=== PATIENT | male | born 1950 | race Caucasian/White ===

== ENCOUNTER → 2018-11-23 09:59 | Outpatient (CLI) | payer MEDICARE, SELFPAY ==
[2018-11-23 12:06] LABS: PSA,Total - Annual Screen 1.15 ng/mL (0.00-4.00)
== END ==
PROVIDERS: Family Provider Family Medicine; PCP Family Medicine; Visit Provider Family Medicine
DX: Z12.5 Encounter for screening for malignant neoplasm of prostate (principal)
CPT/HCPCS: 36415; 84153; G0103

== ENCOUNTER → 2019-12-25 11:41 | Outpatient (CLI) | payer MEDICARE, SELFPAY ==
[2019-12-25 15:55] LABS: Vitamin D,25 Hydroxy 47.2 ng/mL
[2019-12-25 15:56] LABS: ALB/GLOB Ratio 0.9 RATIO (0.9-2.4); AST(SGOT) 45 U/L (15-37); Alanine Aminotransfer ALT/SGPT 103 U/L (16-61); Albumin, Serum 3.7 g/dL (3.2-5.0); Alkaline Phosphatase 84 U/L (45-117); Anion Gap 5 (5-15); BUN 16 mg/dL (7-18); BUN/Creat Ratio 19.8 RATIO (10-20); Calcium,Total 8.9 mg/dL (8.5-10.1); Chloride 104 mmol/L (98-107); Cholesterol 274 mg/dL (200); Creatinine, Serum 0.81 mg/dL (0.70-1.30); EST Glomerular Filtration Rate 101 mL/min (>60); Est Glom Filt Rate - Afr Amer 122 mL/min (>60); Globulin 4.2 g/dL (2.2-4.2); Glucose 82 mg/dL (74-106); High Density Lipoprotein 52 mg/dL; Potassium 3.9 mmol/L (3.5-5.1); Protein, Total 7.9 g/dL (6.4-8.2); Sodium Level 137 mmol/L (136-145); Triglycerides 79 mg/dL; Very Low Density Lipoprotein 16 mg/dL (5-40)
== END ==
PROVIDERS: PCP Family Medicine; Referring Provider Family Medicine; Visit Provider Family Medicine
DX: E55.9 Vitamin D deficiency, unspecified (principal); E78.5 Hyperlipidemia, unspecified
CPT/HCPCS: 36415; 80053; 80061; 82306

== ENCOUNTER → 2021-01-20 14:57 | Outpatient (CLI) | payer MEDICARE, SELFPAY ==
[2021-01-20 18:07] LABS: Vitamin D,25 Hydroxy 37.2 ng/mL
[2021-01-20 18:25] LABS: Cholesterol 232 mg/dL (200); High Density Lipoprotein 60 mg/dL; PSA,Total - Annual Screen 1.33 ng/mL (0.00-4.00); Triglycerides 103 mg/dL; Very Low Density Lipoprotein 21 mg/dL (5-40)
== END ==
PROVIDERS: PCP Family Medicine; Referring Provider Family Medicine; Visit Provider Family Medicine
DX: Z00.00 Encounter for general adult medical examination without abnormal findings (principal); E78.5 Hyperlipidemia, unspecified; E55.9 Vitamin D deficiency, unspecified; Z12.5 Encounter for screening for malignant neoplasm of prostate
CPT/HCPCS: 36415; 80061; 82306; 84153; G0103

== ENCOUNTER → 2022-04-27 | Outpatient (CLI) | payer MEDICARE, SELFPAY ==
[2022-04-27 12:22] LABS: AST(SGOT) 33 U/L (15-37); Alanine Aminotransfer ALT/SGPT 75 U/L (16-61); Albumin, Serum 3.6 g/dL (3.2-5.0); Alkaline Phosphatase 74 U/L (45-117); Bilirubin, Direct 0.12 mg/dL (0.00-0.30); Cholesterol 258 mg/dL (200); Globulin 3.9 g/dL (2.2-4.2); High Density Lipoprotein 57 mg/dL; PSA,Total - Annual Screen 1.56 ng/mL (0.00-4.00); Protein, Total 7.5 g/dL (6.4-8.2); Triglycerides 91 mg/dL; Very Low Density Lipoprotein 18 mg/dL (5-40)
== END | disposition home or self-care (01) ==
LOC: MFPLAB 10:45
PROVIDERS: PCP Family Medicine; Referring Provider Family Medicine; Visit Provider Family Medicine
DX: Z00.00 Encounter for general adult medical examination without abnormal findings (principal); R74.8 Abnormal levels of other serum enzymes; Z12.5 Encounter for screening for malignant neoplasm of prostate
CPT/HCPCS: 36415; 80061; 80076; 84153; G0103

== ENCOUNTER 2022-08-25 08:24 | Day surgery (SDC) | payer MEDICARE, SELFPAY ==
[2022-08-25] VITALS (7 sets, daily range): BP systolic 135–160; BP diastolic 80–95; PULSE 66–73; RESP 15–16; TEMP 36.5–37.5; O2SAT 93–97; BMI 21.9
[2022-08-25] MEDS: Lactated Ringers 1,000 ML 15 ML IV ×2 (09:26→11:15)
--- NOTE | 2022-08-25 09:31 | PCM.HP.BLA ---
History and Physical Date of Admission: 08/25/22 Intake Vital Signs ? 08/02/2213:03 Height 6 ft 4 in Weight: 186 lb BMI 22.6 BP 158/88 H Blood Pressure Location Rt popliteal Position Sitting Respiration 17 Pulse 67 Pulse Source Monitor Temp 97.7 F L Temp Source Temporal Pulse Oximetry (%) 97 Oxygen Delivery Method room air Intake Visit Reasons:?Hernia Chief Complaint: hernia Is patient in pain?: No Allergies No Known Allergies Allergy (Unverified 08/02/22 13:05) Medications garlic extract 400 mg tablet 400 mg PO DAILY 08/02/22 [History Confirmed 08/02/22] multivitamin with minerals 1 cap PO DAILY 08/02/22 [History Confirmed 08/02/22] PFSH Family History?(Updated 08/02/22 @ 13:02 by Peg Mena) Mother Hypertension Heart diseaseFather Heart disease CVA (cerebral vascular accident)Brother Diabetes Heart disease Hypertension Social History?(Updated 08/02/22 @ 13:03 by Peg Mena) Smoking Status:? Never smoker alcohol intake:? never substance use type:? does not use HPI HPI HPI: Patient is a 72-year-old male with bulging of the right groin.? Patient reports is been going on for few months.? Causes discomfort without severe pain.? No nausea or vomiting. ROS General General: No weight change, appetite, fatigue, colon cancer, breast cancer or weakness HEENT HEENT: Yes eye surgery; No difficulty swallowing, eye injury, swollen glands or hoarseness Endo Endocrine: No thyroid disease, diabetes mellitus, thyroid cancer, Hair loss, heat intolerance or cold intolerance Skin Skin: No rash or changing moles Breast Breast: No left breast lump, right breast lump, nipple discharge, breast pain, abnormal mammogram, abnormal US or breast enlargement Musc Musculoskeletal: No back problems, arthritis, rheumatoid arthritis, gout or joint pain Cardio Cardiovascular: No murmur, pacemaker, heart disease, atrial fibrillation, high blood pressure, heart attack, heart stent, palpitations, shortness of breat with exertion or chest pain Psych Psychiatric: No depression, anxiety or hearing voices Resp Respiratory: No shortness of breath, No sleep apnea, No cough, No COPD, No asthma, No emphysema and No wheezing Gastro Gastrointestinal: No abdominal pain, No nausea or vomiting, No diarrhea, No constipation, No blood in stool, No acid reflux, No hemorrhoids, No ulcers, No gallbladder problem and No black,tarry stools Farzad Hematologic: No blood thinners, No blood disorders, No bleeding, No anemia and No blood clots Neuro Neurologic: No system reviewed and no additional complaints, except as documented, No as per HPI, No abnormal gait, No abnormal hearing, No abnormal movements, No abnormal speech, No behavioral changes, No burning sensations, No confusion, No convulsions, No disequilibrium, No dizziness, No localized weakness, No frequent falls, No headache(s), No lack of coordination, No loss of vision, No memory loss, No numbness, No other visual disturbances, No radicular pain, No restless legs, No sensory deficit, No syncope, No tingling, No tremor(s), No weakness and No other Exam Const General: cooperative Orientation: alert and oriented x3 HENMT Head: normal to inspection Neck Neck: normal visual inspection and full ROM Chest Chest palpation & inspection: normal inspection of the chest Resp Effort & Inspection: normal respiratory effort Auscultation: clear to auscultation bilaterally Cardio Rate: regular rate Rhythm: regular rhythm GI Inspection: non-distended Palpation: soft, hernia direct inguinal bilaterally and nontender Skin General: no rashes or lesions noted Neuro General: patient alert and patient oriented x3 Extrem General: full ROM Psych Appearance: grossly normal Mental Status: mental status grossly normal Assessment and Plan Assessment and Plan (1) Right inguinal hernia: ?Status:?Acute ?Plan: Patient on physical exam has bilateral inguinal hernias.? I discussed robotic assisted laparoscopic bilateral inguinal hernia repair with mesh.? I discussed the procedure in detail as well as postoperative care and the risks including not limited to bleeding, infection, injury to spermatic cord or bowel or bladder or ureter.? Patient understands the risks and is willing to proceed. Dominick Oakes MD Pager: [facility] [address] [place] [address], [address] [place] [address] Office: I have examined the patient and the H&P has been reviewed. There are no clinical changes since date of exam.
[2022-08-25] MEDS: Cefazolin 2 GM in 0.9% Normal Saline 100 ML IV (10:12)
[2022-08-25] MEDS: Bupivacaine 0.25% 30 ML Vial (11:20)
[2022-08-25] MEDS: Sugammadex Sodium 200 MG/2 ML VIAL IV (11:21)
--- NOTE | 2022-08-25 11:32 | OP.PCM_ITS ---
Report of Operation Date of Procedure: 08/25/22 Pre-Operative Diagnosis: Bilateral inguinal hernia Post-Operative Diagnosis: Right inguinal hernia Surgery/Procedure Performed:: Robotic assisted laparoscopic right inguinal hernia repair with mesh Specimen's removed: None Description of Procedure: Patient was brought back to the operating room and general anesthesia was induced. The abdomen was prepped and draped in usual sterile fashion. A midline incision was made superior to the umbilicus and the fascia was grasped and elevated and a Veress needle was placed into the abdomen and a drop test was performed. Next the abdomen was insufflated 15 mmHg and the Veress needle was removed. The camera port was placed and the camera placed in the abdomen there were no injuries from entry. The patient was placed in a steep Trendelenburg position and the inguinal regions were inspected. The patient appeared to have an indirect right inguinal hernia but there was no indirect or direct hernia on the left. Next under direct visualization a port was placed in the right abdomen and left abdomen and then the robot was docked. The peritoneum was incised in the right groin and dissection was carried inferiorly assistive electrocautery until the hernia was encountered. The hernia sac was reduced and dissection was carried posteriorly. Next a 10 x 15 cm ProGrip mesh was placed into the right groin and unfolded over the hernia defect. Next the peritoneum was reapproximated using a running 3 OV lock suture. At the end of the procedure the procedure the peritoneum completely cover the mesh. Next the port s were removed and the abdomen was allowed to desufflate. The skin incisions were injected with local anesthetic and closed with interrupted 4-0 Monocryl suture. Steri-Strips and bandages were applied. Scrotum was checked again procedure and contain both testicles. Patient was taken to PACU in stable condition. Grafts/Implants Used: ProGrip mesh in the right groin Admit VTE Documentation VTE Mechan Device Prophylaxis: SCD's
--- NOTE | 2022-08-25 11:35 | DCINST_ITS ---
Discharge Instructions Procedure Hernia Diet Discharge Diet: Light diet - advance as tolerated Activity Discharge Activity: May Not Drive (for 2-3 days or while taking narcotic pain meds.) and May Shower (with the bandage in place 1-2 days after surgery.) Lifting Restrictions: 20 pounds for 4 weeks. Additional Activity Instructions:: Climbing stairs is fine, walking is encouraged. Sitting in bed may be uncomfortable. Sitting up using your lateral muscles (sitting up sideways) is usually more comfortable. Do not drive, work heavy equipment of sign legal documents for 24 hours. If your hernia repair was an inguinal repair, you may have scrotal swelling, an ice pack and/or athletic support can provide more comfort. Pain medications may cause nausea, you should typically eat light foods as you take your pain medications. Pain medications may also cause constipation. If you have difficulty with this, discuss with your doctor. Dressing / Incision Call your doctor if your incision/area has: Continuous Slow Oozing, Sudden Increased Bleeding, Increased Pain/ Swelling, Increased Redness and Foul Smelling Discharge Call your doctor if you observe: Fever of 101 or Higher Suture Line Care: Avoid Pulling/Pushing and Avoid Pinching/Bending Remove Dressing in: 2 days (Remove clear bandages in 2 days, remove Steri-Strips in 7 to 10 days.) Cleanse incision/area with: Soap & Water Additional Dressing/Incision Instructions:: Ibuprofen and Tylenol for pain, oxycodone for breakthrough pain. Follow Up Care Please Follow Up With: Dominikc Oakes MD When: Please call to schedule 2 week follow up appointment. [phone] Test Results: Test results from this visit will be discussed in further detail at your follow- up appointment, if applicable. Discharge Plan Admission Attending Provider: Dominick Oakes Primary Care Provider: Maria Del Rosario Sierra Discharge Orders/Prescriptions Prescriptions: New oxycodone 5 mg tablet 5 - 10 mg PO Q6H PRN (Reason: pain) 5 Days Qty: 10 0RF No Action garlic extract 400 mg tablet 400 mg PO DAILY multivitamin with minerals Capsule 1 cap PO DAILY ascorbic acid (vitamin C) [Vitamin C] 500 mg Tablet 500 mg PO DAILY Gabamax 1 tsp PO/SL DAILY Serelax 1 tab PO/SL BID Referrals / Follow Up: Maria Del Rosario Sierra MD [Primary Care Provider] - Disposition Disposition (needs filled in before D/C Order can be placed): Home, Self Care
== END 2022-08-25 14:38 | disposition home or self-care (01) ==
LOC: SDC 08:33 → AC 08:34
PROVIDERS: PCP Family Medicine; Referring Provider Surgery; Visit Provider Surgery
PROC: (CPT 49650; principal; 2022-08-25 09:40)
DX: K40.90 Unilateral inguinal hernia, without obstruction or gangrene, not specified as recurrent (principal)
CPT/HCPCS: 49650; S2900; 00840; 93005; J7120; J2405

== ENCOUNTER → 2023-05-02 | Outpatient (CLI) | payer MEDICARE, SELFPAY ==
[2023-05-02 10:46] LABS: AST(SGOT) 28 U/L (15-37); Alanine Aminotransfer ALT/SGPT 72 U/L (16-61); Albumin, Serum 3.3 g/dL (3.2-5.0); Alkaline Phosphatase 97 U/L (45-117); Bilirubin, Direct 0.17 mg/dL (0.00-0.30); Globulin 3.9 g/dL (2.2-4.2); PSA,Total - Annual Screen 2.59 ng/mL (0.00-4.00); Protein, Total 7.2 g/dL (6.4-8.2)
== END | disposition home or self-care (01) ==
PROVIDERS: PCP Family Medicine; Visit Provider Family Medicine
DX: R74.8 Abnormal levels of other serum enzymes (principal); Z12.5 Encounter for screening for malignant neoplasm of prostate
CPT/HCPCS: 36415; 80076; 84153; G0103

== ENCOUNTER → 2023-07-24 | Outpatient (CLI) | payer MEDICARE, SELFPAY ==
[2023-07-24 12:24] LABS: Absolute Lymphocyte Count 1.76 X10^3/uL (0.83-4.51); Basophil# 0.01 X10^3/uL; Basophil% 0.2 % (0-1); Eosinophils% 1.8 % (0-5); Hemoglobin 16.1 g/dL (13.0-16.5); Lymphocyte # 1.76 X10^3/ul (0.83-4.51); Lymphocyte % 31.9 % (19-41); Mean Corp Hgb Conc 32.9 g/dL (32-36); Mean Corpuscular Volume 94.4 fL (80-94); Mean Platelet Vol. 9.5 fl (6.2-12.0); Monocyte# 0.62 X10^3/uL; Monocyte% 11.2 % (0-10); NRBC Flagged by Analyzer 0 % (0-5); Neutrophil # 3.02 X10^3/uL (2.7-7.7); Neutrophil % 54.7 % (47-70); Platelet Count 247 K/mm3 (150-450); RBC Distribution Width CV 12.9 % (11.6-14.6); RBC Distribution Width SD 44.8 fl (35.1-43.9); Red Blood Count 5.19 M/mm3 (4.6-6.2); White Blood Count 5.5 K/mm3 (4.4-11.0)
[2023-07-24 12:55] LABS: Thyroid Stim Hormone (TSH) 2.17 uIU/mL (0.358-3.74)
== END | disposition home or self-care (01) ==
LOC: MTLAB 09:59
PROVIDERS: PCP Family Medicine; Referring Provider Family Medicine; Visit Provider Family Medicine
DX: R53.83 Other fatigue (principal)
CPT/HCPCS: 36415; 84443; 85025

== ENCOUNTER 2024-04-08 15:22 | Inpatient (IN) | payer MEDICARE, SELFPAY ==
[2024-04-08 15:23] VITALS: BP 167/98; PULSE 74; RESP 16; TEMP 36.8; O2SAT 97; BMI 22.8
--- NOTE | 2024-04-08 15:48 | EKG12_ITS ---
Test Reason : CP Blood Pressure : / mmHG Vent. Rate : 074 BPM Atrial Rate : 074 BPM P-R Int : 162 ms QRS Dur : 086 ms QT Int : 408 ms P-R-T Axes : 066 -09 072 degrees QTc Int : 452 ms Poor data quality, interpretation may be adversely affected Normal sinus rhythm Possible Inferior infarct , age undetermined Anterior infarct , age undetermined Abnormal ECG Confirmed by Wiliam Joseph ([id number]), online content editor MAGALI ANN ([id number]) on 04/09/2024 8:34:29 AM Referred By: CARL Confirmed By:Wiliam Joseph
--- NOTE | 2024-04-08 15:49 | ED.VIS.CHEST ---
HPI History of Present Illness Chief Complaint: Chest Pain Detail of Chief Complaint: Chest pain Informant: patient Narrative Narrative: Patient presents emergency department complaint of chest discomfort that started today around noon. He was doing some light work when he noticed the discomfort in his chest and some discomfort in his left arm. Denies any shortness of breath or diaphoresis. He has not had pain like this before. Describes it as achy. Does have significant family history of heart disease and that his brother had a 5 vessel CABG at age 50 and his father had a CABG in his 60s. Another brother is also had coronary artery intervention. No history of PE or DVT. Last stress test was about 20 years ago. Patient currently rates his pain about a 1 or 2 out of 10. [facility] Medical History (Updated 04/08/24 @ 17:[address] Francisco Araiza, ) Loss of hearing Wears glasses Essential tremor Non-smoker History of stress test Home Medications ?Medication ?Instructions ?Recorded ?Last Taken ?Type garlic extract 400 mg tablet 400 mg PO DAILY 08/02/22 Unknown History multivitamin with minerals 1 cap PO DAILY 08/02/22 Unknown History Gabamax 1 tsp PO/SL DAILY TREMORS 08/18/22 Unknown History Serelax 1 tab PO/SL BID MOOD 08/18/22 Unknown History ascorbic acid (vitamin C) 500 mg 500 mg PO DAILY 08/18/22 Unknown History tablet (Vitamin C) Allergy/AdvReac Type Severity Reaction Status Date / Time No Known Allergies Allergy Verified 04/08/24 15:23 Family History (Updated 08/02/22 @ 13:02 by Peg Mena) Mother Hypertension Heart disease Father Heart disease CVA (cerebral vascular accident) Brother Diabetes Heart disease Hypertension Surgical History History of right inguinal hernia repair (~08/2022) Hx of colonoscopy Hx of eye surgery Hx of arthroscopic knee surgery Social History (Updated 08/02/22 @ 13:03 by Peg Mena) Smoking Status: Never smoker alcohol intake: never substance use type: does not use ROS ROS ED Review of Systems ROS Unobtainable: other Constitutional Constitutional ED: Reports lethargy; Denies chills, fever(s), sweats or weight loss Eyes Eyes: Denies blurry vision, change in vision or diplopia ENT ENT ED: Denies rhinorrhea or sore throat Cardiovascular Cardiovascular: Reports chest pain; Denies orthopnea or racing heartbeat Respiratory/Chest Respiratory/Chest: Denies cough, dyspnea, dyspnea on exertion, orthopnea or sputum Gastrointestinal Gastrointestinal: Denies abdominal pain, diarrhea, nausea or vomiting Genitourinary Genitourinary ED: Denies dysuria, hematuria or urinary frequency Musculoskeletal Musculoskeletal: Denies arthralgias, back pain, myalgias or neck pain Integumentary Denies abscess, Abrasions or rash Neurologic Neurologic: Denies headache(s) or weakness Psychiatric Psychiatric: Denies anxiety, depression or suicidal thoughts Endocrine Endocrinology: Denies polydipsia, polyphagia or polyuria Hematologic/Lymphatic Hematologic/Lymphatic: Denies easy bleeding, easy bruising or lymphadenopathy Allergic/Immunologic Allergic/Immunologic ED: Denies mouth swelling, tongue swelling or urticaria EXAM Physical Exam Const Vital Signs: 04/08/24 15:23 04/08/24 16:23 04/08/24 16:24 Temperature 98.2 F Temperature Source Temporal Pulse Rate 74 68 Respiratory Rate 16 20 H Respiratory Effort Blood Pressure 167/98 H 161/98 H Blood Pressure Mean 121 119 Pulse Ox 97 98 Oxygen Delivery Method Room Air Room Air Room Air 04/08/24 16:25 Temperature Temperature Source Pulse Rate Respiratory Rate Respiratory Effort Normal Non-Labored Blood Pressure Blood Pressure Mean Pulse Ox Oxygen Delivery Method Positive well nourished and well developed General Appearance ED: well developed and NAD HEENT Reports TM's clear and moist mucous membranes normocephalic and atraumatic; Negative for trauma or tenderness Tympanic Membrane ED: Yes TM's clear Eyes PERRL and EOMs intact bilaterally General Eye ED: Negative for pale conjunctiva or scleral icterus Neck no lymphadenopathy, supple and no JVD General: Negative for tenderness Chest Wall inspection of chest normal and palpation of chest normal Chest: Negative for tenderness Resp normal respiratory effort and clear to auscultation bilaterally Effort and Inspection: Negative for respiratory distress or pain with movement Auscultation: Negative for rhonchi, wheezes or diminished lung sounds Cardio regular rate, regular rhythm, S1 normal heart sound, S2 normal heart sound and no murmurs Peripheral Pulses: pulses 2+ throughout GI normal to inspection, nondistended, normoactive bowel sounds, soft to palpation, non-tender, non-distended and no masses Back/Spine no CVA tenderness and no thoracic nor lumbar tenderness Extremity normal to inspection General Extremety ED: Negative for edema General Extremity: Negative for edema Neuro oriented x3, CN's II-XII intact bilaterally, no sensory deficits noted and gait normal Sensorium / Orientation: awake, alert, oriented to person, oriented to place and oriented to time Motor Exam: strength 5/5 throughout and strength abnormal Psych mental status grossly normal Skin no rashes or lesions noted and no wounds Heart Score History: Moderately Suspicious ECG: Nonspecific Repolarization Age: >/= 65 years Risk Factors: 1 or 2 Risk Factors Troponin: >/=3 x Normal Limit Score: 7 MDM MDM MDM Narrative Medical decision making narrative: Patient presents with chest discomfort started around noon today. Significant family history heart disease. In the differential would be acute coronary syndrome versus PE. Versus musculoskeletal etiology. Versus GI etiology. EKG obtained arrival showed a sinus rhythm with Q waves in V2 and V3 with [address] elevation and when compared with prior EKG these changes appear new. No other significant changes noted. Patient CBC with differential showed a white count of 6.8 with hemoglobin 14 and platelet count of 205. Chemistries unremarkable. D-dimer when corrected for age is normal. His troponin came back elevated at 721. I did discuss case with archaeologist on-call Dr. Cisco Quintanilla and faxed him the EKGs. He recommended heparin and admission for heart cath tomorrow. Clinically patient doing well. Lab Data Attestation: I reviewed the patient's lab results. Labs: Laboratory Results - last 24 hr 04/08/24 16:00 WBC 6.8 RBC 4.80 Hgb 14.0 Hct 42.8 MCV 89.2 MCH 29.2 MCHC 32.7 RDW Std Deviation 45.6 H RDW Coeff of Sushma 14.1 Plt Count 205 MPV 9.1 Immature Gran % (Auto) 0.300 Neut % (Auto) 80.1 H Lymph % (Auto) 9.7 L Tift % (Auto) 8.6 Eos % (Auto) 1.0 Baso % (Auto) 0.3 Absolute Neuts (auto) 5.5 Absolute Lymphs (auto) 0.66 L Nucleated RBC % 0 D-Dimer Quant (PE/DVT) 0.58 H* Sodium 136 Potassium 3.7 Chloride 105 Carbon Dioxide 28.0 Anion Gap 3 L BUN 21 H Creatinine 0.86 Estim Creat Clear Calc 94.62 Est GFR (MDRD) Af Amer 112 Est GFR (MDRD) Non-Af 93 BUN/Creatinine Ratio 24.3 H Glucose 125 H Calcium 8.9 Troponin I High Sens 721 H* Radiography Diagnostic Testing: Clinical Impression(s) from Imaging Studies Chest X-Ray 04/08/24 16:15 IMPRESSION: No radiographic evidence of acute cardiopulmonary disease. Electronically Signed: Rene Sher MD at 16:34 EDT , EKG Initial EKG: Attestation: I personally reviewed and interpreted this EKG as follows: Comments: Sinus rhythm with ventricular rate of 74 bpm with old anterior septal infarct. Subtle ST elevation in V2 and V3 Prior EKG tracings: available for review Prior: Changed Discharge Plan Triage Chief Complaint: Chest Pain ED Provider: Francisco Araiza Dx/Rx/DC Orders Clinical Impression: Chest pain, Non-ST elevated myocardial infarction Prescriptions: No Action garlic extract 400 mg tablet 400 mg PO DAILY multivitamin with minerals Capsule 1 cap PO DAILY ascorbic acid (vitamin C) [Vitamin C] 500 mg Tablet 500 mg PO DAILY Gabamax 1 tsp PO/SL DAILY Serelax 1 tab PO/SL BID Primary Care Provider: Maria Del Rosario Sierra Referrals: Maria Del Rosario Sierra MD [Primary Care Provider] - Print Language: Guinean Disposition Disposition: Acute Care Hospital [facility]
[2024-04-08 16:09] LABS: Absolute Lymphocyte Count 0.66 X10^3/uL (0.83-4.51); Absolute Neutrophil Count 5.5 X10^3/uL (2.0-7.7); Basophil# 0.02 X10^3/uL; Basophil% 0.3 % (0-1); Eosinophil# 0.07 X10^3/uL; Hematocrit 42.8 % (40-54); Lymphocyte # 0.66 X10^3/ul (0.83-4.51); Lymphocyte % 9.7 % (19-41); Mean Corp Hgb Conc 32.7 g/dL (32-36); Mean Corpuscular Hgb 29.2 pg (27.0-32.0); Mean Corpuscular Volume 89.2 fL (80-94); Mean Platelet Vol. 9.1 fl (6.2-12.0); Monocyte# 0.59 X10^3/uL; Monocyte% 8.6 % (0-10); NRBC Flagged by Analyzer 0 % (0-5); Neutrophil # 5.47 X10^3/uL (2.7-7.7); Neutrophil % 80.1 % (47-70); Platelet Count 205 K/mm3 (150-450); RBC Distribution Width CV 14.1 % (11.6-14.6); RBC Distribution Width SD 45.6 fl (35.1-43.9); White Blood Count 6.8 K/mm3 (4.4-11.0)
--- NOTE | 2024-04-08 16:15 | RAD_ITS ---
EXAM: XR CHEST, 1 VIEW CLINICAL INDICATION: chest pain TECHNIQUE: Frontal view of the chest. COMPARISON: No relevant prior studies available. FINDINGS: LUNGS AND PLEURAL SPACES: Unremarkable. No consolidation or edema. No pneumothorax. No effusion. HEART: Unremarkable. Cardiac silhouette not enlarged. MEDIASTINUM: Central airways and mediastinal contour are unremarkable. BONES/JOINTS: Unremarkable. No acute fracture. SOFT TISSUES: Unremarkable. RAD/Chest 1 View (Portable) IMPRESSION: No radiographic evidence of acute cardiopulmonary disease. Electronically Signed: Rene Sher MD at 16:34 EDT ,
[2024-04-08 16:23] VITALS: BP 161/98; PULSE 68; RESP 20; O2SAT 98
[2024-04-08 16:36] LABS: Anion Gap 3 (5-15); BUN 21 mg/dL (7-18); BUN/Creat Ratio 24.3 RATIO (10-20); Calcium,Total 8.9 mg/dL (8.5-10.1); Chloride 105 mmol/L (98-107); Creatinine, Serum 0.86 mg/dL (0.70-1.30); EST Glomerular Filtration Rate 93 mL/min (>60); Est Glom Filt Rate - Afr Amer 112 mL/min (>60); Estimated Creatinine Clearance 94.62 ml/min; Glucose 125 mg/dL (74-106); Potassium 3.7 mmol/L (3.5-5.1); Sodium Level 136 mmol/L (136-145); Troponin-I HS (w/2H Reflex) 721 pg/mL (3.0-78.0)
[2024-04-08 16:38] LABS: D-Dimer Quantitative (DVT/PE) 0.58 FEU/ug/m (0.27-0.49)
--- NOTE | 2024-04-08 16:38 | ED.RN ---
Critical d-dimer of 0.[address] Araiza made aware
[2024-04-08] MEDS: Aspirin 81 MG TAB.CHEW 324 MG PO (16:40)
[2024-04-08] MEDS: 0.9% Normal Saline (1000mL) 1,000 ML 150 ML IV ×2 (16:40→23:33)
[2024-04-08 17:00] VITALS: BP 157/93; PULSE 78; RESP 16; O2SAT 98
[2024-04-08 17:07] VITALS: BP 157/93; PULSE 71
[2024-04-08] MEDS: Nitroglycerin Oint 1 INCH PACKET TD (17:07)
[2024-04-08] MEDS: HEPARIN/D5w 25,000 UNITS 25,000 UNITS/250 ML IV.SOLN. 12 UNITS CONT INF (17:07)
[2024-04-08] MEDS: Heparin Injection (Vial) 5,000 UNIT/ML VIAL 6000 UNIT IV (17:08)
[2024-04-08 17:39] LABS: International Normalized Ratio 1.1; Partial Thromboplast Time 26.3 Seconds (24.1-36.2); Prothrombin Time (Protime)PT. 13.8 SECONDS (11.7-14.9)
--- NOTE | 2024-04-08 17:39 | PCM.HP.STD ---
HPI - General General Date of Admission: 04/08/24 Date of Service: 04/08/24 Chief Complaint: Chest pain HPI Narrative MARCELLO MANNING, is a 73 M who presented to [facility] ED 04/08/2024 with substernal chest pain. In the ED he was found to have some ST changes and a troponin of over 700 so he was started on heparin drip and cardiology was contacted with plans to cath in the morning. Hospitalist contacted for admission. Patient evaluated at bedside with family member present. He reports he been in his usual health but around noon he began to have substernal chest pain, there is some question of left shoulder and arm pain though he had been staining something and is left-handed so he was not sure if that was from overuse or not. Had a headache yesterday but otherwise has no other acute complaints, chest pain almost completely abated after 3 hours and is now minimal. [facility] Medical History (Updated 04/08/24 @ 17:[address] Francisco Araiza, DO) Essential tremor History of stress test Loss of hearing Non-smoker Wears glasses Home Medications ?Medication ?Instructions ?Recorded ?Last Taken ?Type Gabamax 1 tsp PO DAILY TREMORS 08/18/22 04/07/24 History BALANCE OF NATURE 1 cap PO DAILY SUPPLEMENT 04/08/24 04/08/24 History PREVAGEN 1 cap PO DAILY MEMORY 04/08/24 04/08/24 History Allergy/AdvReac Type Severity Reaction Status Date / Time No Known Allergies Allergy Verified 04/08/24 15:23 Family History (Updated 08/02/22 @ 13:02 by Peg Mena) Mother Hypertension Heart disease Father Heart disease CVA (cerebral vascular accident) Brother Diabetes Heart disease Hypertension Surgical History History of right inguinal hernia repair (~08/2022) Hx of arthroscopic knee surgery Hx of colonoscopy Hx of eye surgery Social History (Updated 08/02/22 @ 13:03 by Peg Mena) Smoking Status: Never smoker alcohol intake: never substance use type: does not use ROS ROS Narrative General: Denies fever/chills HENT: Denies headache, denies stuffy nose, denies sore throat EYES: Denies changes in vision Resp: Denies cough, denies shortness of breath Cardiac: Chest pain was completely gone GI: Denies abdominal pain, denies changes in bowel, denies nausea/vomiting : Denies changes in urination Extremity: Denies swelling MSK: Denies weakness Neuro: Denies any numbness/tingling Heme: Denies any bleeding or bruising Skin: Denies rashes Psychiatric: No complaints voiced Vital Signs Vital Signs Vital Signs: 04/08/24 15:23 04/08/24 16:23 04/08/24 16:24 Temperature 98.2 F Temperature Source Temporal Pulse Rate 74 68 Respiratory Rate 16 20 H Respiratory Effort Blood Pressure 167/98 H 161/98 H Blood Pressure Mean 121 119 Pulse Ox 97 98 Oxygen Delivery Method Room Air Room Air Room Air 04/08/24 16:25 04/08/24 17:00 04/08/24 17:07 Temperature Temperature Source Pulse Rate 78 71 Respiratory Rate 16 Respiratory Effort Normal Non-Labored Blood Pressure 157/93 H 157/93 H Blood Pressure Mean 114 Pulse Ox 98 Oxygen Delivery Method Room Air Weight Weight: 84.912 kg Body Mass Index (BMI) 22.8 Physical Exam Narrative General: Alert, oriented, no apparent distress HEENT: Atraumatic, normocephalic Eyes: Anicteric, normal conjunctiva, extraocular movements grossly intact Neck: Supple Respiratory: Clear to auscultation bilaterally, normal respiratory effort Cardiovascular: Regular rate and rhythm GI: Soft, nontender, nondistended Extremities: No edema Musculoskeletal: Moving all extremities Neuro: No overt focal neurological deficits Skin: No rashes appreciated Psych: Cooperative Results Lab / Micro Data 04/08/24 16:00 04/08/24 16:00 Labs: Laboratory Results - last 24 hr 04/08/24 16:00: WBC 6.8, RBC 4.80, Hgb 14.0, Hct 42.8, MCV 89.2, MCH 29.2, MCHC 32.7, RDW Std Deviation 45.6 H, RDW Coeff of Sushma 14.1, Plt Count 205, MPV 9.1, Immature Gran % (Auto) 0.300, Neut % (Auto) 80.1 H, Lymph % (Auto) 9.7 L, Hyde % (Auto) 8.6, Eos % (Auto) 1.0, Baso % (Auto) 0.3, Absolute Neuts (auto) 5.5, Absolute Lymphs (auto) 0.66 L, Nucleated RBC % 0, D-Dimer Quant (PE/DVT) 0.58 H*, Sodium 136, Potassium 3.7, Chloride 105, Carbon Dioxide 28.0, Anion Gap 3 L, BUN 21 H, Creatinine 0.86, Estim Creat Clear Calc 94.62, Est GFR (MDRD) Af Amer 112, Est GFR (MDRD) Non-Af 93, BUN/Creatinine Ratio 24.3 H, Glucose 125 H, Calcium 8.9, Troponin I High Sens 721 H* Imaging Radiology Impression Chest X-Ray 04/08/24 16:15 IMPRESSION: No radiographic evidence of acute cardiopulmonary disease. Electronically Signed: Rene Sher MD at 16:34 EDT , Assessment & Plan Assessment/Plan (1) Non-ST elevated myocardial infarction: PLAN: Plan #NSTEMI, Suspect type I -EKG with some ST changes but was reviewed and not felt to be a STEMI -Trop 721 -Admit to telemetry -Echo ordered -Aspirin -Statin -Lipid panel in AM -Heparin drip -Nitro paste administered x 1 -Cardiology consult #DVT ppx: Heparin drip Anni Alfaro MD Time spent in the patient's overall evaluation,decision-making process, review of diagnostic data, adjustment of management, discussion with other providers, nursing nursing and ancillary staff involved in patient's care documentation, 43 minutes Charges/Coding Visit Charges Inpatient E&M: 23470 Init Hosp L1
[2024-04-08 18:04] LABS: Reflex Troponin-HS? (from REC) Y
[2024-04-08 18:14] VITALS: BMI 22.6
--- NOTE | 2024-04-08 18:19 | EKG12_ITS ---
Test Reason : AM EKG Blood Pressure : / mmHG Vent. Rate : 069 BPM Atrial Rate : 069 BPM P-R Int : 178 ms QRS Dur : 094 ms QT Int : 432 ms P-R-T Axes : 071 013 081 degrees QTc Int : 462 ms Normal sinus rhythm Possible Inferior infarct , age undetermined Anteroseptal infarct , age undetermined Abnormal ECG When compared with ECG of 08-APR-2024 20:07, MANUAL COMPARISON REQUIRED, DATA IS UNCONFIRMED Confirmed by Wiliam Joseph ([id number]), news editor MAGALI ANN ([id number]) on 04/09/2024 8:36:10 AM Referred By: Confirmed By:Wiliam Joseph
--- NOTE | 2024-04-08 18:19 | ECHOCS_ITS ---
Reason For Study: CHEST PAIN Procedure This was a 2D Doppler, Color Flow transthoracic echocardiogram. Contrast injection was performed. Exam performed portable in patient room. Left Ventricle Normal LV size. The left ventricular ejection fraction is 45 %. Stage 1 diastolic dysfunction. Mild to moderate segmental systolic dysfunction (see wall motion). [place] : Akinetic. Mid-Anterior : Hypokinetic. Mid-anteroseptal : Hypokinetic. Anterior [place] : Hypokinetic. Right Ventricle Normal RV size. Normal systolic function. Atria Normal left atrium. Normal right atrium. Mitral Valve Normal mitral valve. Tricuspid Valve Normal tricuspid valve. Mild (1+) tricuspid valve insufficiency. Pulmonary artery systolic pressure is 33 mmHg. Aortic Valve Trisinus/trileaflet aortic valve. Pulmonic Valve Normal pulmonic valve. Great Vessels Normal aortic root. The pulmonary artery is normal size. Inferior vena cava collapse with respiration. Pericardium/Pleural No pericardial effusion. Medication Diluted definity 4ml given slow IV push to enhance endocardial definition. MMode/2D Measurements & Calculations LVIDd: 4.9 cm IVSd: 0.85 cm LVOT diam: 2.1 cm LVIDs: 3.3 cm LVPWd: 0.75 cm RVDd: 4.6 cm FS: 33.8 % LVOT area: 3.5 cm2 Ao root diam: 3.8 cm LAV(MOD-bp): 70.8 ml LVAd ap4: 41.3 cm2 LA dimension: 4.5 cm LAV(MOD-bp) Indexed: 33.0 ml/m2 LVLd ap4: 8.7 cm LAV(MOD-sp2): 80.6 ml EDV(MOD-sp4): 155.0 ml LAV(MOD-sp4): 51.7 ml EDV(sp4-el): 166.6 ml LVAs ap4: 29.0 cm2 LVLs ap4: 7.9 cm ESV(MOD-sp4): 84.8 ml ESV(sp4-el): 89.9 ml EF(MOD-sp4): 45.3 % EF(sp4-el): 46.0 % SV(MOD-sp4): 70.2 ml SV(sp4-el): 76.7 ml LA A4 area: 18.2 cm2 RA A4 area: 18.4 cm2 Time Measurements MV dec time: 0.22 sec Doppler Measurements & Calculations MV E max daquan: 62.0 cm/sec Lat Peak E' Daquan: 9.8 cm/sec Med Peak E' Daquan: 9.3 cm/sec MV A max daquan: 64.9 cm/sec E/E' lat: 6.3 E/E' med: 6.7 MV E/A: 0.95 MV V2 max: 83.7 cm/sec MV P1/2t max daquan: 72.9 cm/sec Ao V2 max: 109.0 cm/sec MV max P.8 mmHg MV P1/2t: 69.0 msec Ao max P.8 mmHg MV V2 mean: 46.7 cm/sec MV dec slope: 309.5 cm/sec2 Ao V2 mean: 79.7 cm/sec MV mean P.0 mmHg MVA(P1/2t): 3.2 cm2 Ao mean P.8 mmHg MV V2 VTI: 27.2 cm Ao V2 VTI: 25.4 cm MVA(VTI): 2.7 cm2 AV (velocity ratio): 0.84 JAREN(I,D): 2.9 cm2 JAREN(V,D): 3.1 cm2 LV V1 max: 97.1 cm/sec SV(LVOT): 74.1 ml PA V2 max: 67.6 cm/sec LV V1 max P.8 mmHg PA max PG (full): 0.61 mmHg LV V1 mean P.4 mmHg LV V1 mean: 74.0 cm/sec LV V1 VTI: 21.4 cm TR max daquan: 266.1 cm/sec TR max P.3 mmHg ECHO/Echo Complete W/ Contrast Interpretation Summary Normal LV size. The left ventricular ejection fraction is 45 %. Stage 1 diastolic dysfunction. Mild to moderate segmental systolic dysfunction (see wall motion). Ordering Physician: Anni Alfaro Performed By: Miguel Suggs and Student
[2024-04-08 19:29] LABS: Troponin-I HS 9585 pg/mL (3.0-78.0)
[2024-04-08 20:00] VITALS: O2SAT 98
[2024-04-08 22:25] LABS: Troponin-I HS 16617 pg/mL (3.0-78.0)
[2024-04-08 23:30] VITALS: BP 131/83; PULSE 65; RESP 18; TEMP 37.2; O2SAT 96
[2024-04-08 23:30] LABS: Partial Thromboplast Time 76.8 Seconds (24.1-36.2)
[2024-04-09] VITALS (11 sets, daily range): BP systolic 109–133; BP diastolic 64–87; PULSE 61–73; RESP 14–18; TEMP 37.2–37.3; O2SAT 94–98
[2024-04-09] MEDS: Magnesium Sulfate 1 GM in Dextrose 5%-Water (100mL Bag) 100 ML IV (03:13)
[2024-04-09 05:31] LABS: Absolute Lymphocyte Count 0.74 X10^3/uL (0.83-4.51); Absolute Neutrophil Count 6.9 X10^3/uL (2.0-7.7); Basophil# 0.02 X10^3/uL; Basophil% 0.2 % (0-1); Eosinophil# 0.03 X10^3/uL; Eosinophils% 0.4 % (0-5); Hematocrit 38.9 % (40-54); Hemoglobin 13.2 g/dL (13.0-16.5); Lymphocyte # 0.74 X10^3/ul (0.83-4.51); Lymphocyte % 8.7 % (19-41); Mean Corp Hgb Conc 33.9 g/dL (32-36); Mean Corpuscular Hgb 30.5 pg (27.0-32.0); Mean Corpuscular Volume 89.8 fL (80-94); Mean Platelet Vol. 9.3 fl (6.2-12.0); Monocyte# 0.75 X10^3/uL; Monocyte% 8.9 % (0-10); NRBC Flagged by Analyzer 0 % (0-5); Neutrophil % 81.6 % (47-70); Platelet Count 204 K/mm3 (150-450); RBC Distribution Width CV 14.1 % (11.6-14.6); RBC Distribution Width SD 46.2 fl (35.1-43.9); Red Blood Count 4.33 M/mm3 (4.6-6.2); White Blood Count 8.5 K/mm3 (4.4-11.0)
--- NOTE | 2024-04-09 05:55 | EKG12_ITS ---
Test Reason : CP ADMIT Blood Pressure : / mmHG Vent. Rate : 075 BPM Atrial Rate : 075 BPM P-R Int : 172 ms QRS Dur : 092 ms QT Int : 428 ms P-R-T Axes : 072 014 079 degrees QTc Int : 477 ms Normal sinus rhythm Possible Inferior infarct , age undetermined Anterior infarct , age undetermined Abnormal ECG When compared with ECG of 08-APR-2024 15:29, MANUAL COMPARISON REQUIRED, DATA IS UNCONFIRMED Confirmed by Wiliam Joseph ([id number]), managing editor MAGALI ANN ([id number]) on 04/09/2024 8:36:51 AM Referred By: Confirmed By:Wiliam Joseph
[2024-04-09] MEDS: 0.9% Normal Saline (1000mL) 1,000 ML 150 ML IV (05:56)
[2024-04-09 06:01] LABS: Partial Thromboplast Time 61.2 Seconds (24.1-36.2)
[2024-04-09 06:18] LABS: Phosphorus 2.6 mg/dL (2.5-4.9)
[2024-04-09 06:22] LABS: Anion Gap 7 (5-15); BUN 14 mg/dL (7-18); BUN/Creat Ratio 20.6 RATIO (10-20); Chloride 107 mmol/L (98-107); Cholesterol 207 mg/dL (200); Creatinine, Serum 0.68 mg/dL (0.70-1.30); EST Glomerular Filtration Rate 122 mL/min (>60); Est Glom Filt Rate - Afr Amer 148 mL/min (>60); Estimated Creatinine Clearance 101.07 ml/min; Glucose 135 mg/dL (74-106); High Density Lipoprotein 49 mg/dL; Magnesium 1.9 mg/dL (1.6-2.6); Potassium 3.7 mmol/L (3.5-5.1); Sodium Level 137 mmol/L (136-145); Thyroid Stim Hormone (TSH) 0.52 uIU/mL (0.358-3.74); Triglycerides 49 mg/dL; Very Low Density Lipoprotein 10 mg/dL (5-40)
[2024-04-09] MEDS: Aspirin E.C. 81 MG Tablet PO (06:32)
--- NOTE | 2024-04-09 08:00 | PN.HOSP_ITS ---
Reason for Visit Reason for Visit: Chest pain Subjective Subjective Mr. Shirley is a 73-year-old white male who presented to the emergency department at [facility] on 04/08/2024 due to chest pain. He reported that he had been in his usual health but then around noon on the day of presentation he started having substernal chest pain that radiated some into his left shoulder and arm. He also reported he had a headache yesterday but had no other complaints. He had no associated shortness of breath or diaphoresis. Symptoms lasted for about 3 hours and by the time of admission he had minimal symptoms. Vitals on presentation showed a temperature of 98.2, heart rate 74, respiratory rate 16, blood pressure is 167/98 and pulse ox was 97% on room air. His CBC was unremarkable. Coags were normal. His D-dimer was slightly elevated at 0.58 but when corrected for age normalized. Chemistry panel was unremarkable other than hyperglycemia with a glucose of 125. His initial troponin was found to be 721 with subsequent troponin at 9585 and 16,617. TSH was normal. Cholesterol panel showed a total cholesterol of 207/LDL 148/HDL 49/triglycerides were 49. His EKG had nonspecific ST-T wave changes and his chest x-ray was unremarkable. Patient did report he has a significant family history of coronary artery disease and that his brother had a 5 vessel bypass at the age of 50 and his father had a CABG in his 60s. He also reported that another brother has also had percutaneous coronary intervention. Patient has had previous stress test but reports it was about 20 years ago. Case was discussed with Dr. Pierre who is on-call for cardiology and recommended admission with a heparin drip and cardiac catheterization. Objective Data Objective Data Vital Signs: Vital Signs Temp Pulse Resp BP Pulse Ox O2 Del Method 99.1 F 66 18 133/81 H 94 Room Air 04/09/24 06:04/09/24 06:29 04/09/24 06:04/09/24 06:04/09/24 06:29 04/09/24 06:29 Oxygen Delivery Method Room Air Weight: 84.368 kg Body Mass Index (BMI) 22.6 Intake & Output: Intake and Output for Last 24 Hours 04/07/24 04/08/24 04/09/24 23:59 23:59 23:59 Intake Total 1000 / 1000 1237.7 / 1237.7 Output Total 350 / 350 275 / 275 Balance 650 / 650 962.7 / 962.7 Lab / Micro Data 04/09/24 05:21 04/09/24 05:21 Labs: Laboratory Results - last 24 hr 04/08/24 16:00: WBC 6.8, RBC 4.80, Hgb 14.0, Hct 42.8, MCV 89.2, MCH 29.2, MCHC 32.7, RDW Std Deviation 45.6 H, RDW Coeff of Sushma 14.1, Plt Count 205, MPV 9.1, Immature Gran % (Auto) 0.300, Neut % (Auto) 80.1 H, Lymph % (Auto) 9.7 L, [place] % (Auto) 8.6, Eos % (Auto) 1.0, Baso % (Auto) 0.3, Absolute Neuts (auto) 5.5, A bsolute Lymphs (auto) 0.66 L, Nucleated RBC % 0, D-Dimer Quant (PE/DVT) 0.58 H*, Sodium 136, Potassium 3.7, Chloride 105, Carbon Dioxide 28.0, Anion Gap 3 L, BUN 21 H, Creatinine 0.86, Estim Creat Clear Calc 94.62, Est GFR (MDRD) Af Amer 112, Est GFR (MDRD) Non-Af 93, BUN/Creatinine Ratio 24.3 H, Glucose 125 H, Calcium 8.9, Troponin I High Sens 721 H* 04/08/24 17:02: PT 13.8, INR 1.1, APTT 26.3 04/08/24 18:40: Troponin I High Sens 9585 H* 04/08/24 21:42: Troponin I [place] Sens 25973 H* 04/08/24 23:03: APTT 76.8 H 04/09/24 05:21: WBC 8.5, RBC 4.33 L, Hgb 13.2, Hct 38.9 L, MCV 89.8, MCH 30.5, MCHC 33.9, RDW Std Deviation 46.2 H, RDW Coeff of Sushma 14.1, Plt Count 204, MPV 9.3, Immature Gran % (Auto) 0.200, Neut % (Auto) 81.6 H, Lymph % (Auto) 8.7 L, [place] % (Auto) 8.9, Eos % (Auto) 0.4, Baso % (Auto) 0.2, Absolute Neuts (auto) 6.9, Absolute Lymphs (auto) 0.74 L, Nucleated RBC % 0, APTT 61.2 H, Sodium 137, Potassium 3.7, Chloride 107, Carbon Dioxide 23.0, Anion Gap 7, BUN 14, C reatinine 0.68 L, Estim Creat Clear Calc 101.07, Est GFR (MDRD) Af Amer 148, Est GFR (MDRD) Non-Af 122, BUN/Creatinine Ratio 20.6 H, Glucose 135 H, Calcium 8.0 L , Phosphorus 2.6, Magnesium 1.9, Triglycerides 49, Cholesterol 207 H, LDL Cholesterol 148 H, VLDL Cholesterol 10, HDL Cholesterol 49, TSH 0.52 Radiography Diagnostic Testing: Radiology Impression Chest X-Ray 04/08/24 16:15 IMPRESSION: No radiographic evidence of acute cardiopulmonary disease. Electronically Signed: Rene Sher MD at 16:34 EDT , Assessment & Plan Assessment/Plan (1) Non-ST elevated myocardial infarction: (2) Chest pain: (3) Hyperlipidemia: (4) Hyperglycemia: (5) HTN (hypertension): PLAN: Plan NSTEMI -Plan for cardiac catheterization today -Continue heparin drip -Add low-dose metoprolol 12.5 mg p.o. twice daily -Add atorvastatin 80 mg nightly -Lipids were assessed and he was found to have a total cholesterol of 205/LDL 148/HDL 49/triglycerides 49 -Check hemoglobin A1c -continue aspirin -Echocardiogram is pending -Cardiology consultation pending Hyperglycemia -Mild but fasting sugar is elevated at 135 -Check hemoglobin A1c Hypertension -Blood pressures have overall been elevated predominantly in the 1 40-1 70 range -Add low-dose metoprolol 12.5 mg p.o. twice daily for now and monitor response -Will consider adding MALICK inhibitor depending on blood pressure trend -Echocardiogram is pending History of bilateral inguinal hernia -Status post repair with Dr. Villalobos in August 2022 DVT prophylaxis -Continue heparin drip -Once off heparin drip will transition to subcu Lovenox daily CODE STATUS -full code as verified at the time of admission Charges/Coding Visit Charges Inpatient E&M: 57459 Subs Hosp L2
[2024-04-09] MEDS: 0.9% Saline Lock 10 ML Syringe IV (08:06)
[2024-04-09 08:30] LABS: Hemoglobin A1c 5.3 % (3.8-5.6)
--- NOTE | 2024-04-09 09:31 | CASEMGMT ---
Insurance review for hospitals In-network with?[employer] insurance if transfer is recommended is as follows: [facility], [place], [facility], [facility], [facility], [facility]), [facility], [facility], and . Janis May, Discharge Planning Asst
[2024-04-09] MEDS: Metoprolol Tartrate 25 MG Tablet 12.5 MG PO (09:43)
[2024-04-09] MEDS: 0.9% Normal Saline (1000mL) 1,000 ML 15 ML IV (09:45)
--- NOTE | 2024-04-09 09:51 | NURSING ---
Report called to Woody MCGREGOR laborer beam [employer]
--- NOTE | 2024-04-09 10:17 | PCM.CONS.C ---
Assessment & Plan Assessment/Plan (1) Non-ST elevated myocardial infarction: PLAN: He presented with chest discomfort abnormal EKG and abnormal cardiac enzymes consistent with the above. He did have an echocardiogram today which confirmed his wall motion abnormalities involving the anteroseptal wall. I would recommend that he undergo a cardiac catheterization this morning and the results will be communicated to him. Further recommendations will be made. Addendum: Cardiac catheterization demonstrated an ostial and distal left main stenosis, Totally occluded mid left anterior descending artery. Left circumflex artery with mild disease. Dominant right coronary artery very tortuous with mild disease. Reduced left ventricular systolic function with anteroseptal hypokinesis and apical akinesis. Estimated EF 30 to 35%. Recommendation will be to transfer to a tertiary care facility for further evaluation and management. (2) HTN (hypertension): PLAN: His blood pressure appears to be under good control at this particular time the plan to be to continue him on a beta-roula as well as an MALICK inhibitor. (3) Hyperlipidemia: PLAN: Aggressive risk factor modification with a high intensity statin will be instituted. HPI Consult Data Date of Consult: 04/09/24 HPI Narrative HPI Narrative: MARCELLO MANNING, is a 73 M who presented to the emergency room yesterday after complaining of achy chest discomfort after he had been working in the [employer]. He has not had discomfort like this before he initially thought it was indigestion but then it got worse and so he was brought to the emergency room. In the emergency room he had an EKG done which demonstrated changes in the anterior septal wall. Cardiac enzymes also came back abnormal and he was admitted after discussion with physician industrial heparinized for further evaluation. He has no history of hypertension but has a history of hyperlipidemia and a strong family history. I saw him this morning and he was free of discomfort. [facility] Medical History Loss of hearing Wears glasses Essential tremor Non-smoker History of stress test Home Medications ?Medication ?Instructions ?Recorded ?Last Taken ?Type Gabamax 1 tsp PO DAILY TREMORS 08/18/22 04/07/24 History BALANCE OF NATURE 1 cap PO DAILY SUPPLEMENT 04/08/24 04/08/24 History PREVAGEN 1 cap PO DAILY MEMORY 04/08/24 04/08/24 History Allergy/AdvReac Type Severity Reaction Status Date / Time No Known Allergies Allergy Verified 04/08/24 15:23 Family History Mother Hypertension Heart disease Father Heart disease CVA (cerebral vascular accident) Brother Diabetes Heart disease Hypertension Surgical History History of right inguinal hernia repair (~08/2022) Hx of colonoscopy Hx of eye surgery Hx of arthroscopic knee surgery Social History Smoking Status: Never smoker alcohol intake: never substance use type: does not use ROS Constitutional Constitutional: Denies fever(s) or weight loss Eyes Eyes: Reports systems reviewed and no addt'l complaints, except as documented ENT HEENT: Reports systems reviewed and no addt'l complaints, except as documented Cardiovascular Cardiovascular: Reports chest pain at rest and chest pain with activity; Denies dyspnea at rest, dyspnea on exertion, edema, palpitations or paroxysmal nocturnal dyspnea Respiratory/Chest Respiratory/Chest: Denies dyspnea on exertion, productive cough, shortness of breath at rest or shortness of breath with exertion Gastrointestinal Gastrointestinal: Denies change in bowel habits, nausea, vomiting or weight changes Genitourinary Genitourinary: Denies difficulty urinating Musculoskeletal Musculoskeletal: Denies joint stiffness or muscle weakness Integumentary Integumentary: Denies lesions Neurologic Neurologic: Denies dizziness or syncope Psychiatric Psychiatric: Denies anxiety Endocrine Endocrinology: Denies excessive sweating or fatigue Hematologic/Lymphatic Hematologic/Lymphatic: Denies anemia Allergic/Immunologic Allergic/Immunologic: Denies seasonal rhinorrhea Physical Exam Const alert, oriented x3 and no apparent distress General Appearance: cooperative HEENT hearing grossly normal bilaterally Head and Scalp: atraumatic Eyes EOMs intact bilaterally Neck General: normal visual inspection Chest inspection of chest normal and palpation of chest normal Resp normal respiratory effort Auscultation: clear to auscultation bilaterally Cardio regular rate, regular rhythm, S1 normal heart sound and S2 normal heart sound Jugular Venous Distention: JVD GI normal to inspection, nondistended, normoactive bowel sounds Extremity normal capillary refill and no pedal edema Peripheral Pulses: Yes pulses 2+ throughout and femoral pulses present Skin no rashes or lesions noted Neuro oriented x3 and CN's II-XII intact bilaterally Psych Appearance: grossly normal and appropriate Risk Stratification Risk Stratification Applicable: Yes Age >/= 65: Yes >/= 3 CAD Risk Factors (HTN, HLD, DM, family hx of CAD, or current smoker): No Aspirin Use in the Past 7 Days: No Severe Angina (>/= episodes in 24 hours): Yes EKG ST Changes >/= 0.5mm: Yes Positive Cardiac Marker: Yes EMELINA Risk Stratification Score: 4 EMELINA % Risk: 20% Risk Objective Data Vital Signs: Vital Signs Temp Pulse Resp BP Pulse Ox O2 Del Method 99.1 F 71 18 124/87 H 94 Room Air 04/09/24 06:29 04/09/24 09:43 04/09/24 06:29 04/09/24 09:43 04/09/24 06:29 04/09/24 06:29 Oxygen Delivery Method Room Air Weight: 186 lb Body Mass Index (BMI) 22.6 Intake & Output: Intake and Output for Last 24 Hours 04/07/24 04/08/24 04/09/24 23:59 23:59 23:59 Intake Total 1000 / 1000 1797.7 / 1797.7 Output Total 350 / 350 275 / 275 Balance 650 / 650 1522.7 / 1522.7 Lab / Micro Data 04/09/24 05:21 04/09/24 05:21 Labs: Laboratory Results - last 24 hr 04/08/24 16:00: WBC 6.8, RBC 4.80, Hgb 14.0, Hct 42.8, MCV 89.2, MCH 29.2, MCHC 32.7, RDW Std Deviation 45.6 H, RDW Coeff of Sushma 14.1, Plt Count 205, MPV 9.1, Immature Gran % (Auto) 0.300, Neut % (Auto) 80.1 H, Lymph % (Auto) 9.7 L, [place] % (Auto) 8.6, Eos % (Auto) 1.0, Baso % (Auto) 0.3, Absolute Neuts (auto) 5.5, Absolute Lymphs (auto) 0.66 L, Nucleated RBC % 0, D-Dimer Quant (PE/DVT) 0.58 H*, Sodium 136, Potassium 3.7, Chloride 105, Carbon Dioxide 28.0, Anion Gap 3 L, BUN 21 H, Creatinine 0.86, Estim Creat Clear Calc 94.62, Est GFR (MDRD) Af Amer 112, Est GFR (MDRD) Non-Af 93, BUN/Creatinine Ratio 24.3 H, Glucose 125 H, Calcium 8.9, Troponin I High Sens 721 H* 04/08/24 17:02: PT 13.8, INR 1.1, APTT 26.3 04/08/24 18:40: Troponin I High Sens 9585 H* 04/08/24 21:42: Troponin I High Sens 61468 H* 04/08/24 23:03: APTT 76.8 H 04/09/24 05:21: WBC 8.5, RBC 4.33 L, Hgb 13.2, Hct 38.9 L, MCV 89.8, MCH 30.5, MCHC 33.9, RDW Std Deviation 46.2 H, RDW Coeff of Sushma 14.1, Plt Count 204, MPV 9.3, Immature Gran % (Auto) 0.200, Neut % (Auto) 81.6 H, Lymph % (Auto) 8.7 L, [place] % (Auto) 8.9, Eos % (Auto) 0.4, Baso % (Auto) 0.2, Absolute Neuts (auto) 6.9, Absolute Lymphs (auto) 0.74 L, Nucleated RBC % 0, APTT 61.2 H, Sodium 137, Potassium 3.7, Chloride 107, Carbon Dioxide 23.0, Anion Gap 7, BUN 14, Creatinine 0.68 L, Estim Creat Clear Calc 101.07, Est GFR (MDRD) Af Amer 148, Est GFR (MDRD) Non-Af 122, BUN/Creatinine Ratio 20.6 H, Glucose 135 H, Hemoglobin A1c 5.3, Calcium 8.0 L, Phosphorus 2.6, Magnesium 1.9, Triglycerides 49, Cholesterol 207 H, LDL Cholesterol 148 H, VLDL Cholesterol 10, HDL Cholesterol 49, TSH 0.52 Cardiology Labs/Tests 04/08/24 16:00: WBC 6.8, RBC 4.80, Hgb 14.0, Hct 42.8, MCV 89.2, MCH 29.2, MCHC 32.7, Plt Count 205, MPV 9.1, Immature Gran % (Auto) 0.300, Neut % (Auto) 80.1 H, Lymph % (Auto) 9.7 L, [place] % (Auto) 8.6, Eos % (Auto) 1.0, Baso % (Auto) 0.3, Absolute Neuts (auto) 5.5, Nucleated RBC % 0, D-Dimer Quant (PE/DVT) 0.58 H*, Sodium 136, Potassium 3.7, Chloride 105, Carbon Dioxide 28.0, Anion Gap 3 L, BUN 21 H, Creatinine 0.86, Est GFR (MDRD) Af Amer 112, Est GFR (MDRD) Non-Af 93, BUN/Creatinine Ratio 24.3 H, Glucose 125 H, Calcium 8.9 04/08/24 17:02: PT 13.8, INR 1.1, APTT 26.3 04/08/24 23:03: APTT 76.8 H 04/09/24 05:21: WBC 8.5, RBC 4.33 L, Hgb 13.2, Hct 38.9 L, MCV 89.8, MCH 30.5, MCHC 33.9, Plt Count 204, MPV 9.3, Immature Gran % (Auto) 0.200, Neut % (Auto) 81.6 H, Lymph % (Auto) 8.7 L, [place] % (Auto) 8.9, Eos % (Auto) 0.4, Baso % (Auto) 0.2, Absolute Neuts (auto) 6.9, Nucleated RBC % 0, APTT 61.2 H, Sodium 137, Potassium 3.7, Chloride 107, Carbon Dioxide 23.0, Anion Gap 7, BUN 14, Creatinine 0.68 L, Est GFR (MDRD) Af Amer 148, Est GFR (MDRD) Non-Af 122, BUN/Creatinine Ratio 20.6 H, Glucose 135 H, Hemoglobin A1c 5.3, Calcium 8.0 L, Phosphorus 2.6, Magnesium 1.9, Triglycerides 49, Cholesterol 207 H, LDL Cholesterol 148 H, VLDL Cholesterol 10, HDL Cholesterol 49 Rhythm: EKG: ECHO: Stress Test: Cardiac Cath: PCI: CT Surgery: Holter monitor: EPS: PPM: CXR: Chest CT Scan: Radiography Diagnostic Testing: Radiology Impression Chest X-Ray 04/08/24 16:15 IMPRESSION: No radiographic evidence of acute cardiopulmonary disease. Electronically Signed: Rene Sher MD at 16:34 EDT , Echocardiogram 04/08/24 18:19 Interpretation Summary Normal LV size. The left ventricular ejection fraction is 45 %. Stage 1 diastolic dysfunction. Mild to moderate segmental systolic dysfunction (see wall motion). Ordering Physician: Anni Alfaro Performed By: Miguel Suggs and Student
--- NOTE | 2024-04-09 10:48 | CL.D_ITS ---
Patient Name: MARCELLO MANNING Study Date: 04/09/2024 Performing: Praneeth Chen MD Ht: 76 inches 193.04 cm : 1950 Wt: 186 lbs 84.37 kg Age: 73 Gender: male BSA: 2.15 PROCEDURE(S) PERFORMED [id number])LHC/COR/LV CLINICAL PROFILE AND INDICATIONS Indications: ACS <= 24 hrs Heart Failure: None Stress/Imaging Stress/Image Study Performed: No CAD Presentations: Non-STEMI. Symptom onset Date/Time: 04/08/24 Time Not Available CONCLUSIONS Severe coronary disease with distal left main stenosis and a totally occluded mid left anterior descending artery with right to left collaterals and a severely hypokinetic anterior wall and akinetic apex. RECOMMENDATIONS Consider high risk PCI versus bypass surgery. Recommend transfer to her tertiary care center for team approach DESCRIPTION OF PROCEDURE The patient arrived to the procedure lab. The risks and benefits of the procedure as well as a full description of our services here and current unavailability of surgical backup were fully explained to the patient and/or their significant other prior to the catheterization. The Timeout was completed, verifying the correct patient and procedure. The patient's procedural site was prepped and draped in the usual fashion. Local anesthetic was given subcutaneously to right radial region with Lidocaine 2%. Using a modified Seldinger technique, arterial access was obtained via the right radial artery, a 6Fr sheath was inserted. Left Coronary Artery selective angiography was performed in multiple views using a 5 Fr. 4.0 [place] catheter. Right Coronary Artery selective angiography was then performed in multiple views using a 5 Fr. 4.0 [place] catheter.The arterial sheath was pulled and a TR Band was applied for hemostasis. 10cc air CORONARY ANGIOGRAPHY DOMINANCE: Artery: Dominant LEFT HEART ASSESSMENT Left Ventricular Ejection Fraction: by LV Gram 35 % Anterior Hypokinesis - Severe. Apical Akinesis. Inferior Apical Akinesis Depressed Left Ventricular systolic function LEFT MAIN: Ostial 20% and distal 60 to 70% stenosis LEFT ANTERIOR DESCENDING ARTERY: This vessel was severely diseased and after the first septal sand mill grinder is totally occluded, a first diagonal vessel has moderate disease CIRCUMFLEX ARTERY: A tortuous vessel nondominant with 2 obtuse marginal branches with mild diffuse disease less than 30% stenosis noted in both areas no high-grade stenosis is present. RIGHT CORONARY ARTERY: Dominant right coronary artery tortuous with mild diffuse proximal disease and mild distal disease. COLLATERAL FLOW: Collateral flow from Right to Left COMPLICATIONS No Complications PROCEDURE MEDICATIONS Fentanyl 50 mcg IV Versed 1 mg IV Versed 1 mg IV Oxygen: 2 L/min via nasal cannula Heparin given IA 04/09/2024 10:16:42 Verapamil 2.5mg, Ntg 100mcgs, 3000 units of Heparin given IA 04/09/2024 10:16:42 SUMMARY OF HEMODYNAMIC DATA Time AIR REST ECG 10:00:41 AO 125/75 (97) SA 10:26:11 LV 115/15, 21 10:31:28 LV 127/16, 26 10:31:37 LV 120/16, 27 10:32:08 LVp 120/17, 27 10:32:12 AOp 130/68 (92) 10:32:19 Signed By Praneeth Chen MD On 04/09/2024 10:47:23 Praneeth Chen MD
--- NOTE | 2024-04-09 12:48 | PCM.DC.SUM ---
Providers Date of Admission: 04/08/24 Date of Discharge: 04/09/24 Primary Care Physician: Dr. Maria Del Rosario Sierra MD Consultations 04/08/24 18:19 Consult: Cardiology Routine Consulting Provider: Niels Pierre Reason for Consult: Chest Pain EMERGENT Consult: No MD Notified: Yes Date Notified: 04/08/24 Time Notified: 17:45 Method of Notification: ED Physician Initiated Reason For Visit: NSTEMI Diagnosis Discharge Diagnosis (1) Non-ST elevated myocardial infarction: Status: Acute Code(s): I21.4 - Non-ST elevation (NSTEMI) myocardial infarction (2) HTN (hypertension): Status: Chronic Code(s): I10 - Essential (primary) hypertension (3) Hyperlipidemia: Status: Acute Code(s): E78.5 - Hyperlipidemia, unspecified Plan Medications at Discharge Home Medications Gabamax 1 tsp PO DAILY TREMORS 08/18/22 BALANCE OF NATURE 1 cap PO DAILY SUPPLEMENT 04/08/24 PREVAGEN 1 cap PO DAILY MEMORY 04/08/24 Hospital Course Operations None Procedures 2-D Echocardiogram, Cardiac catheterization, EKG and - (Chest x-ray) Summary of Care Provided Minutes Spent on Discharge: 40 Hospital Course: Mr. Shirley is a 73-year-old white male who presented to the emergency department at [facility] on 04/08/2024 due to chest pain. He reported that he had been in his usual health but then around noon on the day of presentation he started having substernal chest pain that radiated some into his left shoulder and arm. He also reported he had a headache yesterday but had no other complaints. He had no associated shortness of breath or diaphoresis. Symptoms lasted for about 3 hours and by the time of admission he had minimal symptoms. Vitals on presentation showed a temperature of 98.2, heart rate 74, respiratory rate 16, blood pressure is 167/98 and pulse ox was 97% on room air. His CBC was unremarkable. Coags were normal. His D-dimer was slightly elevated at 0.58 but when corrected for age normalized. Chemistry panel was unremarkable other than hyperglycemia with a glucose of 125. His initial troponin was found to be 721 with subsequent troponin at 9585 and 16,617. TSH was normal. Cholesterol panel showed a total cholesterol of 207/LDL 148/HDL 49/triglycerides were 49. His EKG had nonspecific ST-T wave changes and his chest x-ray was unremarkable. Patient did report he has a significant family history of coronary artery disease and that his brother had a 5 vessel bypass at the age of 50 and his father had a CABG in his 60s. He also reported that another brother has also had percutaneous coronary intervention. Patient has had previous stress test but reports it was about 20 years ago. Case was discussed with Dr. Pierre who is on-call for cardiology and recommended admission with a heparin drip and cardiac catheterization. He was admitted to the telemetry floor and started on aspirin, atorvastatin, and low-dose metoprolol. Cardiology was consulted and an echocardiogram was performed. Echocardiogram done on 04/08/2024 demonstrated normal LV size with an EF of 45%, stage I diastolic dysfunction and mild to moderate segmental systolic dysfunction. He was then [facility] where he was found to have severe coronary artery disease with distal left main stenosis and a totally occluded LAD in the midportion with right to left collaterals and a severely hypokinetic anterior wall and akinetic apex. Recommendations were high risk PCI versus bypass surgery and the case was discussed by cardiology with cardiothoracic surgery at [facility]. Cardiothoracic surgery was recommended and he was accepted by Dr. Leonides Alicea from cardiothoracic surgery at [facility]. He was transferred there on the afternoon of 04/19/2024 with plans for bypass tomorrow. Lipid profile was obtained and he was found of a total cholesterol of 205/LDL 148/HDL 49/triglycerides 49. He was noted to have some fasting hyperglycemia and an A1c was obtained and found to be 5.3. Discharge diagnoses: NSTEMI Hyperlipidemia Hypertension Insulin resistance History of bilateral inguinal hernias Physical Exam Const alert, oriented x3, no apparent distress, average body habitus, no limitations and well nourished Constitutional Narrative: Older, white male, lying in bed, appears comfortable, nontoxic, denying chest pain, at bedside General Appearance: cooperative, comfortable, well kempt and well developed Orientation / Consciousness: awake, oriented to person, oriented to place and oriented to time Exam Limitations: no limitations HEENT normocephalic, head/scalp atraumatic, hearing grossly normal bilaterally and moist oral mucous membranes HEENT Narrative: Mallampati 2, no thrush Eyes PERRL, EOMs intact bilaterally and conjunctivae normal Eyes Narrative: No scleral icterus Neck no lymphadenopathy and supple Neck Narrative: Neck veins are flat, trachea midline, no noted thyroid enlargement Resp normal respiratory effort, no retractions, no use of accessory muscles and clear to auscultation bilaterally Auscultation: Negative for rales, rhonchi or wheezes Cardio regular rate, regular rhythm, S1 normal heart sound, S2 normal heart sound, no murmurs, no rub, no gallops and no clicks GI normal to inspection, nondistended, normoactive bowel sounds, soft to palpation and non-tender Extremity no clubbing, cyanosis or edema Extremity Narrative: Pedal pulses are 2+, right radial pulse with compression device postcardiac catheterization in place with good cap refill bilaterally, left radial pulses 2+ Skin no rashes or lesions noted, no wounds, skin turgor normal and no jaundice Neuro oriented x3, moves all extremities and no focal motor deficits Speech: speech normal Psych affect normal Psych Narrative: Concernred but appropriate, interacts well, appears calm Weight / BMI Weight Weight: 84.368 kg Body Mass Index (BMI) 22.6 ABG / Lab / Microbiology Data 04/09/24 05:21 04/09/24 05:21 Laboratory: Laboratory Results - last 24 hr 04/08/24 16:00: WBC 6.8, RBC 4.80, Hgb 14.0, Hct 42.8, MCV 89.2, MCH 29.2, MCHC 32.7, RDW Std Deviation 45.6 H, RDW Coeff of Sushma 14.1, Plt Count 205, MPV 9.1, Immature Gran % (Auto) 0.300, Neut % (Auto) 80.1 H, Lymph % (Auto) 9.7 L, [place] % (Auto) 8.6, Eos % (Auto) 1.0, Baso % (Auto) 0.3, Absolute Neuts (auto) 5.5, Absolute Lymphs (auto) 0.66 L, Nucleated RBC % 0, D-Dimer Quant (PE/DVT) 0.58 H*, Sodium 136, Potassium 3.7, Chloride 105, Carbon Dioxide 28.0, Anion Gap 3 L, BUN 21 H, Creatinine 0.86, Estim Creat Clear Calc 94.62, Est GFR (MDRD) Af Amer 112, Est GFR (MDRD) Non-Af 93, BUN/Creatinine Ratio 24.3 H, Glucose 125 H, Calcium 8.9, Troponin I High Sens 721 H* 04/08/24 17:02: PT 13.8, INR 1.1, APTT 26.3 04/08/24 18:40: Troponin I High Sens 9585 H* 04/08/24 21:42: Troponin I High Sens 14637 H* 04/08/24 23:03: APTT 76.8 H 04/09/24 05:21: WBC 8.5, RBC 4.33 L, Hgb 13.2, Hct 38.9 L, MCV 89.8, MCH 30.5, MCHC 33.9, RDW Std Deviation 46.2 H, RDW Coeff of Sushma 14.1, Plt Count 204, MPV 9.3, Immature Gran % (Auto) 0.200, Neut % (Auto) 81.6 H, Lymph % (Auto) 8.7 L, [place] % (Auto) 8.9, Eos % (Auto) 0.4, Baso % (Auto) 0.2, Absolute Neuts (auto) 6.9, Absolute Lymphs (auto) 0.74 L, Nucleated RBC % 0, APTT 61.2 H, Sodium 137, Potassium 3.7, Chloride 107, Carbon Dioxide 23.0, Anion Gap 7, BUN 14, Creatinine 0.68 L, Estim Creat Clear Calc 101.07, Est GFR (MDRD) Af Amer 148, Est GFR (MDRD) Non-Af 122, BUN/Creatinine Ratio 20.6 H, Glucose 135 H, Hemoglobin A1c 5.3, Calcium 8.0 L, Phosphorus 2.6, Magnesium 1.9, Triglycerides 49, Cholesterol 207 H, LDL Cholesterol 148 H, VLDL Cholesterol 10, HDL Cholesterol 49, TSH 0.52 Radiography Diagnostic Testing: Radiology Impression Chest X-Ray 04/08/24 16:15 IMPRESSION: No radiographic evidence of acute cardiopulmonary disease. Electronically Signed: Rene Sher MD at 16:34 EDT , Echocardiogram 04/08/24 18:19 Interpretation Summary Normal LV size. The left ventricular ejection fraction is 45 %. Stage 1 diastolic dysfunction. Mild to moderate segmental systolic dysfunction (see wall motion). Ordering Physician: Anni Alfaro Performed By: Miguel Suggs and Student Meaningful Use Info Meaningful Use Meaningful Use Diagnoses (Choose all that apply): None applicable Ischemic Stroke Statin Dosing Therapy Reference: STATIN DOSE THERAPY REFERENCE: * Patients > 75 years receive moderate or high dose statin therapy. * Patients 75 years or YOUNGER should receive HIGH intensity statin dose unless contraindicated. You will be required to document reason for non-treatment if statin daily dose does not meet guidelines. HIGH DOSE STATIN THERAPY DAILY Atorvastatin > than or = to 40 mg Rosuvastatin > than or = to 20 mg Amlodipine + Atorvastatin > than or = to 2.5/40 mg Ezetimibe + Simvastatin 10/80 mg Simvastatin 80mg Discharge Plan Admission Admit Date/Time: 04/08/24 17:39 Primary Reason for Your Visit: Chest pain Attending Provider: Oralia Becerra Primary Care Provider: Maria Del Rosario Sierra Consulting Providers: Niels Pierre; Anni Alfaro Discharge Orders/Prescriptions Prescriptions: No Action Gabamax liquid 1 tsp PO DAILY PREVAGEN capsule 1 cap PO DAILY BALANCE OF NATURE capsule 1 cap PO DAILY Referrals / Follow Up: Maria Del Rosario Sierra MD [Primary Care Provider] - Disposition Disposition (needs filled in before D/C Order can be placed): Acute Care Hospital Charges/Coding Visit Charges Inpatient E&M: 29794 Disch Hosp >30min
--- NOTE | 2024-04-09 14:45 | NURSING ---
Report called to Reinaldo MCGREGOR at [facility] ICU.
== END 2024-04-09 15:48 | disposition short-term general hospital (02) | DRG 282 ==
LOC: ED 17:02 → PCU 17:54
PROVIDERS: Internal Medicine; Admitting Provider Internal Medicine; Emergency Provider Emergency Medicine; PCP Family Medicine; Visit Provider Internal Medicine
DX: I21.4 Non-ST elevation (NSTEMI) myocardial infarction (principal); E88.819 Insulin resistance, unspecified; I10 Essential (primary) hypertension; E78.5 Hyperlipidemia, unspecified; I25.10 Atherosclerotic heart disease of native coronary artery without angina pectoris; Z79.899 Other long term (current) drug therapy; Z82.49 Family history of ischemic heart disease and other diseases of the circulatory system
CPT/HCPCS: 36415; 71045; 80048; 80061; 83036; 83735; 84100; 84443; 84484; 85025; 85379; 85610; 85730; 93005; 93306; 93458; 99152; 99153; 99285; J7030; Q9957; Q9967; A4216; C1769; C1894; C8929

== ENCOUNTER → 2024-04-22 | Outpatient (CLI) | payer MEDICARE, SELFPAY ==
[2024-04-22 16:56] LABS: Anion Gap 9 (5-15); BUN 20 mg/dL (7-18); BUN/Creat Ratio 24.2 RATIO (10-20); Calcium,Total 8.8 mg/dL (8.5-10.1); Chloride 101 mmol/L (98-107); Creatinine, Serum 0.82 mg/dL (0.70-1.30); EST Glomerular Filtration Rate 98 mL/min (>60); Est Glom Filt Rate - Afr Amer 118 mL/min (>60); Glucose 93 mg/dL (74-106); Potassium 3.9 mmol/L (3.5-5.1); Sodium Level 135 mmol/L (136-145)
== END | disposition home or self-care (01) ==
LOC: LABSPEC 16:29
PROVIDERS: PCP Family Medicine
DX: I25.10 Atherosclerotic heart disease of native coronary artery without angina pectoris (principal)
CPT/HCPCS: 80048

== ENCOUNTER → 2024-05-06 | Outpatient (CLI) | payer MEDICARE, SELFPAY ==
[2024-05-06 12:26] LABS: PSA,Total - Annual Screen 2.49 ng/mL (0.00-4.00)
== END | disposition home or self-care (01) ==
LOC: MFPLAB 10:38
PROVIDERS: PCP Family Medicine; Visit Provider Family Medicine
DX: Z12.5 Encounter for screening for malignant neoplasm of prostate (principal)
CPT/HCPCS: 36415; 84153; G0103

== ENCOUNTER → 2024-05-20 | Outpatient (CLI) | payer MEDICARE, SELFPAY ==
--- NOTE | 2024-05-20 10:03 | CR.HP_ITS ---
CR - History & Physical General Arrival date:: 05/20/24 Arrival time:: 10:04 Date of Referral:: 05/14/24 Date of CR Evaluation:: 05/20/24 Referring Physician: Dr. Praneeth Chen Primary Diagnosis: CABG History of Present Cardiac Event Onset Date Coronary Artery Bypass Graft:: Yes (04/12/24 onset) Medications Ambulatory Orders ?Medication ?Instructions ?Recorded aspirin 81 mg tablet,delayed 81 mg PO DAILY #30 tabs 04/17/24 release (Adult Aspirin Regimen) clopidogrel 75 mg tablet (Plavix) 75 mg PO DAILY #30 tabs 04/17/24 metoprolol succinate 25 mg 12.5 mg PO DAILY 05/14/24 tablet,extended release 24 hr Allergies Allergies No Known Allergies Allergy (Verified 05/14/24 12:50) Sleep Disorder Evaluation Hx of Sleep Apnea: No Do you snore loudly (louder than talking or can be heard through closed doors)?: No Do you often feel tired/ fatigued/ sleepy during daytime?: No Has anyone observed you stop breathing during sleep?: No History of Hypertension (for STOP score): Yes STOP Results: Negative Advanced Directives Advanced Directives Power of Handle Lathe Operator: Yes Living Will: Yes Advance Directives Information Provided: Yes Advance Directives on File: No DNR Order?:: No Past Medical History Covid-19 Screening Physicial Symptoms Other Clinical Concerns Exposure Risk Pertinent Comorbidities 65 years or older:: Yes Has a serious heart condition:: Yes Past Medical Illness Past Medical History COPD (chronic obstructive pulmonary disease) J44.9 Acute on chronic systolic (congestive) heart failure I50.23 Non-ST elevation myocardial infarction (NSTEMI) with complication I21.4 Atherosclerotic heart disease of [place] coronary artery without angina pectoris I25.10 Cardiomyopathy I42.9 Loss of hearing H91.90 Wears glasses Z97.3 Essential tremor G25.0 LEFT HAND/WITH FINE MOTOR SKILL Non-smoker Z78.9 History of stress test Z92.89 1985 Past Surgical History Past Surgical History (Updated 05/14/24 @ 13:16 by Rahel ESTEVEZ, PA) History of coronary artery bypass graft x 3 (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/24) Z95.1 CHAMBERS to LAD, rsvg to DX and marginal History of right inguinal hernia repair (~08/2022) Z98.890, Z87.19 Hx of colonoscopy Z98.890 Hx of eye surgery Z98.890 LEFT EYE Hx of arthroscopic knee surgery Z98.890 LEFT X2 Family History Summary Family History Mother Hypertension Heart disease Father Heart disease CVA (cerebral vascular accident) Brother Diabetes Heart disease Hypertension Social History Smoking History Smoking Status: Never smoker Alcohol Use Alcohol Usage: No Substance Abuse Hx Substance Use: No Occupation Occupation (List type of work in comments):: Retired Hobbies, Recreation, Social Activities Hobbies: Other (car shows, hiking) Recreational Activities: I am able to engage in all my recreational activities Social Environment Status Marital Status: Current Living Arrangements Living Environment:: Spouse Children How many children do you have?: 2 Do any of your children live nearby?: No Safety Do you feel safe in your surroundings?: Yes Assistance Do you need any assistance at home?: no Review of Systems Review of Systems Hints Review of Present Symptoms: Reports Appetite - Normal and Appetite - Special Diet; Denies Shortness of Breath at Rest, Shortness of Breath with Exertion, PVD, Operative Discomfort, Angina, Wound Healing, Dizziness/Lightheadedness, Fatigue, Heart Arrhythmia/Irregularities, Sleep - Normal or Sexual Changes Pain Is Patient Pain Free?: No Pain Location: other (shoulder) Pain Level: 9/10 Risk Factor Assessment Chief Complaint Chief Complaint: CABG Vital Signs Pulse Ox: 97 Blood Pressure: 124/75 Pulse Pulse Rate: 81 Hypertension How long have you been treated?: recent Blood Pressure Sitting - Right Arm: 124/75 Obesity Height: 6 ft 4 in Weight:: 178 lb Weight in Pounds: 178.0 lbs Body Mass Index (BMI): 21.7 Nutritional Referral for Obesity: No Physical Inactivity Physical Inactivity: Recreational activity Risk Stratification Risk Guidelines: Moderate Risk: Risk Factor for Smoking, Risk Factor for Diabetes, Risk Factor for Obesity, Risk Factor for Sedentary Lifestyle and Risk Factor for Depression and Highest Risk: Risk Factor for Dyslipidemia and Risk Factor for Hypertension For Smoking Smoking Risk Guidelines For Dyslipidemia Dyslipidemia Risk Guidelines For Diabetes Mellitus Diabetes Risk Guidelines For Obesity/Overweight Obesity/Overweight Risk Guidelines For Hypertension Hypertension Risk Guidelines For Sedentary Lifestyle Sedentary Lifestyle Risk Guidelines For Depression Depression Risk Guidelines Family History Family History Mother Hypertension Heart disease Father Heart disease CVA (cerebral vascular accident) Brother Diabetes Heart disease Hypertension Motivation Motivation to Participate On a scale of 1 to 10, how prepared are you to commit to attending program?: 7 What do you see as barriers to successfully being able to complete the program?: nothing What do you see as the benefits of succesfully completing the program? In other words, what do you hope to get out of participating in the program?: back to normal life Are there issues you are dealing with that will interfere with completing the program?: no Do you have a spouse or signficant other, family or friends who will help support you to complete the program?: yes
[2024-05-20 10:08] VITALS: BP 124/75; PULSE 81; O2SAT 97
--- NOTE | 2024-05-20 10:08 | PCM.CR.ITP ---
Diagnosis General Information Admitting Diagnosis: CABG Personal Learning Style:: Audio/Visual Stage of change r/t lifestyle modifications:: Contemplation Gave educational material for:: Treating Heart Disease, How The Heart Works, What it means to have Heart Disease, How Coronary Artery Disease is Diagnosed, Heart Procedures, What Heart Medications Do, Risk Factors & Modifications, Living an Active Life, Nutrition, Emotions & Heart Disease, Stress Management & Relaxation and Sleep Disorders & Heart Disease Education/Goals Cardiac Rehabilitation Goals Personal Goals: Initial Assessment: Get back to work, or to resume activities faster, Improve knowledge of cardiac disease, Improve muscle strength and endurance and Improve diet and eating habits (eat healthier) Scale for measuring improvement of personal goals Diagnosis & Disease Process Outcomes/Goals: Pt IDs own risk factors & lifestyle modifications by Session 10, Verbalizes symptoms of angina & response by session 3., Pt independently manages and Other Additional Outcomes/Goals: Plan/Interventions: Assist Pt to ID & engage in lifestyle modification to reduce CVD risk, Instruct on individual risk factors, Review symptoms of angina & emergency actions, Review secondary diagnosis & identify educational needs. and Other see comment 30 day Reassessments:: Not Met 30 day Reassessments:: Not Met 30 day Reassessments:: Not Met 30 day Reassessments:: Not Met Final Reassessments:: Not Met Safety Referral to Physical Therapy: No Referral to [facility] Case Management: No Fall Risk Assessed:: Yes Assistive Devices:: None Exercise - Initial Assessment Visit Date of Eval: 05/20/24 (initial eval ) Mets: Pre-: >3 METS for 30 minutes by discharge, >5 METS for 30 minutes by discharge, >7 METS for 30 minutes by discharge and Unable to meet goal due to: (see comment below) Physician Prescribed Exercise Modalities: Treadmill, Schwinn Airdyne AD-7, SciFit Stepper, SciFit Pro-II Ergometer and [employer] Lateral [place] Frequency: 3x/week for 12 weeks [36 sessions] Intensity: 60-80% of age predicted maximum heart rate reserve Duration: 30 - 45 minutes Current METSs:: 3 Target Heart Rate:: 89-111 Resting Blood Pressure: 124/75 EKG Type: NSR Outcomes & Goals Goals:: Verbalizes understanding of THR, RPE & goal METS by session 6, Documents in home exercise log/reports 30 min aerobic 5 day/wk by DC, Demonstrates accurate pulse taking by DC and Other additional outcome/goals: see below Intervention & Plan Exercise Program Goals: Instruct on personal THR & RPE, Instruct on MET level & personal MET goal, Show patient to take own pulse /validate performance until accurate, Instruct on home exercise and Other additional plan/int Physical Activity Home Exercise Physical Activity - Home Exercise: Safe Exercise, Warm-up, Self-monitoring, Cool-Down, Home Exercise > 30 min Daily and Sitting Time <3 hours/daily Outcomes & Goals Outcomes/Goals: Demonstrates correct Warm-up/exercise Cool-Down (S3) if = 2.5 METs, Verbalizes symptoms of exercise intolerance by Session 3 (S3), Demonstrate safe equipment use (S3) & follows exercise prescrition (6) and Other: See below Intervention & Plan Plan/Intervention: Instruct warm-up & cool-down if exercising at > 2 METs, Instruct on symptoms of exercise intolerance & actions to take, Instruct & monitor on saf, Assess intial functional capacity & safety risk and Other See below Nutrition - Initial Assessment Program Goals Nutrition Program Goals Patient has diagnosis of Hyperlipidemia (ICD E78)?: Yes Visit Date of Eval: 05/20/24 (initial eval ) Cholesterol/Lipids (Other Core Measures) Determine presence & major risk factors that modify LDL goal: Cigarette smoking, Hypertension or hypertensive medication, Low HDL cholesterol <40 mg/dL*, Family history of premature CHD in Male < 55 years: female <65 yearsFa and Age men > 45 years; women >/= 55 years Outcomes/Goals: Pt IDs own risk factors & lifestyle modifications by Session 10, Verbalizes symptoms of angina & response by session 3., Pt independently manages and Other Additional Outcomes/Goals: Intervention/Plan: Advocate for lipid panel cholesterol medication if applicable, Instruct on personal lipid levels & lipid goals/NCEP guidelines, Instruct on cholesterol and Other additional plan/int Referral to dietitian:: No (declines) Diabetes (Other Core Measures) Diabetes Type: Not Applicable Weight Mgt (Other Care) Height: 6 ft 4 in Weight:: 178 lb BMI: 21.7 Diagnosis Overweight/Obesity BMI> 30% ICD-10 E66: No Outcomes/Goals: Pt sets, maintains & shows weight loss goal & trend during rehab and Other additional outcomes/goals Intervention/Plan: Instruct on ideal BMI & set weight loss goal w/patient, Assist pt to ID & incorporate diet changes for weight loss by S9, Refer to Structured Weight Loss program as appropriate, Encourage goal of using 250-300dcal per session for weight loss and Other additional plan/interventions Healthy Eating Habits Will attend diet classes:: Yes Outcomes/Goals:: Consume diet rich in vegs,fruits,whole grain/high fiber,fish,lean meat, Limit sat/trans fats,cholesterol & added salts & sugars and Other additional outcome/goals: Intervention/Plan:: Assess current eating habits and Other Additional plan/interventions Education Gave educational materials for:: Signs & symptoms of hypoglycemia, Signs & symptoms of hyperglycemia, Relate diabetes to coronary artery disease and Healthy eating Core - Initial Assessment Visit Date of Eval: 05/20/24 (initial eval ) Medication Compliance Preventative Medication(s):: Aspirin, Clopidogrel/P2Y12 inhibit and Beta roula H/O mental health issues: depression, anxiety, or addiction?: No Doesn?t believe in the benefits of treatment?: No Believes medications are unnecessary or harmful?: No Has a concern about medication side effects?: No Expresses concern over the cost of medications?: No Outcomes/Goals: Verbalizes medications,desired effect & common side effects @ DC, Pt self-reports following medication regimen, Keeps card in wallet w/medications listed by DC and Other additional outcome/goals: Interventions/plans: Instruct on medication effects & side effects, Review medication list w/patient every two weeks, Instruct importance of taking meds as ordered & assist problem solving and Other additional Tobacco Use Tobacco Use: Non-smoker Hypertension Hypertension Diagnosis:: Hypertension ICD-10 I10 Resting Blood Pressure:: 124/75 [place] [employer] Hypertension Guidelines Outcomes/Goals: Able to verbalize/achieve optimal blood pressure <130/80, Incorporates diet changes & exercise for blood pressure control by DC and Other additional outcomes/goals Interventions/plan: Instruct on optimal blood pressure, hypertension & medications, Instruct on effects of sodium, alcohol, stress, exercise &hypertension and Other additional plan/interventions Tobacco Cessation Referral Smoking Cessation Referral:: No Individual Education/Counseling:: No Education Schedule Given:: Yes Psychosocial - Initial Assess VIsit Date of Eval: 05/20/24 (initial eval ) History of previous Mental disease:: No Target Goals Target Goals Outcomes/Goals: See list Psychosocial Outcomes/Goals:: ID's personal stressors & 2 strategies to manage stress by discharge and Other Additional outcome/goals: Intervention/Plan: See List Interventions/Plan:: Assess stressors,coping strategies & signs of derpression on admission, Instruct/assist pt to develop coping & personal stress Mgt strategies, Refer to Behavioral Health if appropriate, Refer to Physician if appropriate, Instruct patient to recognize signs & symptoms of depression, Instruct patient to recog and Other additional plan/intervention Patient Health Questionnaire PHQ-9 Screening Initial Assessment: 1. Little interest or pleasure in doing things: Not at all 2. Feeling down, depressed, or hopeless: Not at all 3. Trouble falling or staying asleep, or sleeping too much: Nearly every day 4. Feeling tired or having little energy: Not at all 5. Poor appetite or overeating: Not at all 6. Feeling bad about yourself -- or that you are a failure or have let yourself or your family down: Not at all 7. Trouble concentrating on things, such as reading the newspaper or watching television: Not at all 8. Moving or speaking so slowly that other people could have noticed. Or the opposite - being so fidgety or restless that you have been moving around a lot more than usual: Not at all 9. Thoughts that you would be better off , or of hurting yourself in some way: Not at all How difficult have these problems made it for you to do your work, take care of things at home, or get along with other people?: Not difficult at all Total Score: 3 OSVALDO-Q SV Test Statements CAD is a disease of the arteries in the heart: False Examples of risk factors for heart disease: True Angina is chest pain or discomfort: True The benefits of resistance training include: True Eating more meat and dairy products: False Anti-platelet medications such as aspirin are important: True The only effective way to manage stress: False An exercise warm-up slowly increases heart rate: True Prepared, processed foods usually have high sodium: True Depression is common after a heart attack: True The statin medications lower cholesterol: True To control blood pressure, lower the amount of sodium: True If someone gets chest discomfort during walking: False Transfats are partially hydrogenated vegetable oils: True Sleep apnea that is not treated increases the risk: True To control cholesterol, one should become a vegetarian: False Someone knows if he/she is exercising at the right level: False Diabetes cannot be prevented with exercise & health eating: False Stress is a large risk for heart attack: True A diet that can help lower blood pressure is rich in: True Total Score Total Correct Responses: 18 Self-Efficacy 6-Item Scale Initial Assessment: We would like to know how confident you are in doing certain activities. Please select your confidence level for: Fatigue Select Number: 8 Physical Discomfort or Pain Select Number: 9 Emotional Distress Select Number: 10 Other Symptoms or Health Problems Select Number: 9 Different Tasks and Activities Select Number: 9 Medication Select Number: 9 Total Score:: 9 Nutrition Survey Nutrition Survey Instructions Scoring Instructions Nutrition Survey Initial: Have you lost >10 lbs over the past 2 months without trying?: Yes Are you following a special diet at home for diabetes, low fat, or low salt?: No Are you interested in meeting with a dietitian for help understanding your diet?: No Do you eat less than 3 meals a day?: No Do you eat fatty meats (rivera, sausage, ribs, etc), fried foods, desserts, large amounts of salad dressings, margarine, butter, or cheese most days?: No Do you have food allergies? [Enter types in comment field]: No Do you eat in restaurants more than 3 times a week?: No Do you season food with salt, seasoning salt, or garlic salt?: Yes Do you used canned, boxed, frozen meals, or soups, seasoning packets?: Yes Total Score:: 3 Exercise - 30-day Assessment Physician Prescribed Exercise Modalities: Treadmill, Schwinn Airdyne AD-7, SciFit Stepper, SciFit Pro-II Ergometer and SciFit Lateral [place] Exercise - 60-day Assessment Physician Prescribed Exercise Modalities: Treadmill, Schwinn Airdyne AD-7, SciFit Stepper, SciFit Pro-II Ergometer and SciFit Lateral [place] Exercise - 90-day Assessment Physician Prescribed Exercise Modalities: Treadmill, Schwinn Airdyne AD-7, SciFit Stepper, SciFit Pro-II Ergometer and SciFit Lateral [place] Exercise - Final/Discharge Physician Prescribed Exercise Modalities: Treadmill, Schwinn Airdyne AD-7, SciFit Stepper, SciFit Pro-II Ergometer and SciFit Lateral [employer] Frequency: 3x/week for 12 weeks [36 sessions] Intensity: 60-80% of age predicted maximum heart rate reserve Current METSs:: 3 Target Heart Rate:: 89-111 Nutrition - 30-Day Assessment Weight Mgt (Other Care) Height: 6 ft 4 in Weight:: 178 lb BMI: 21.7 Nutrition - 60-Day Assessment Weight Mgt (Other Care) Height: 6 ft 4 in Weight:: 178 lb BMI: 21.7 Core - Final Assessment Hypertension Resting Blood Pressure:: 124/75 [place] [employer] Hypertension Guidelines Core - 60-Day Assessment Hypertension Resting Blood Pressure:: 124/75 [place] [employer] Hypertension Guidelines Psychosocial - 30-Day Assess Target Goals Target Goals Psychosocial - 60-Day Assess Target Goals Target Goals Psychosocial - 90-Day Assess Target Goals Target Goals Psychosocial - Final Assessmen Target Goals Target Goals Nutrition - 90-Day Assessment Weight Mgt (Other Care) Height: 6 ft 4 in Weight:: 178 lb BMI: 21.7 Nutrition - Final Assessment Program Goals Patient has diagnosis of Hyperlipidemia (ICD E78)?: Yes Weight Mgt (Other Care) Height: 6 ft 4 in Weight:: 178 lb BMI: 21.7
[2024-05-20 10:19] VITALS: BP 124/75
[2024-05-20 10:33] VITALS: BMI 21.7
[2024-05-20 10:53] VITALS: BMI 21.7
== END | disposition home or self-care (01) ==
LOC: CR 09:48
PROVIDERS: PCP Family Medicine; Referring Provider Internal Medicine Cardiovascular Disease; Visit Provider Internal Medicine Cardiovascular Disease
DX: Z95.1 Presence of aortocoronary bypass graft (principal); I11.0 Hypertensive heart disease with heart failure; I50.23 Acute on chronic systolic (congestive) heart failure; J44.9 Chronic obstructive pulmonary disease, unspecified; I21.4 Non-ST elevation (NSTEMI) myocardial infarction; I42.9 Cardiomyopathy, unspecified; I25.10 Atherosclerotic heart disease of native coronary artery without angina pectoris; E78.5 Hyperlipidemia, unspecified; R07.9 Chest pain, unspecified

== ENCOUNTER 2024-06-07 10:15 | Outpatient (RCR) | payer MEDICARE, SELFPAY ==
[2024-05-20 10:53] VITALS: BMI 21.7
== END 2024-06-08 23:59 ==
LOC: CR 10:15
PROVIDERS: PCP Family Medicine; Referring Provider Internal Medicine Cardiovascular Disease; Visit Provider Internal Medicine Cardiovascular Disease
DX: Z95.1 Presence of aortocoronary bypass graft (principal); J44.9 Chronic obstructive pulmonary disease, unspecified; I50.23 Acute on chronic systolic (congestive) heart failure; I11.0 Hypertensive heart disease with heart failure; I21.4 Non-ST elevation (NSTEMI) myocardial infarction; I42.9 Cardiomyopathy, unspecified; I25.10 Atherosclerotic heart disease of native coronary artery without angina pectoris; E78.5 Hyperlipidemia, unspecified; R07.9 Chest pain, unspecified
CPT/HCPCS: 93798

== ENCOUNTER 2024-07-08 10:15 | Outpatient (RCR) | payer MEDICARE, SELFPAY ==
[2024-05-20 10:53] VITALS: BMI 21.7
--- NOTE | 2024-06-20 08:31 | CR.ITP_ITS ---
Exercise - Initial Assessment Visit Session #:: 12 Physician Prescribed Exercise Modalities: Treadmill, Schwinn Airdyne AD-7 and SciFit Stepper Nutrition - Initial Assessment Weight Mgt (Other Care) Height: 6 ft 4 in Weight:: 174 lb 8 oz BMI: 21.2 Psychosocial - Initial Assess Target Goals Target Goals Referral to Behavioral Health PS - Interventions: Yes: Referral to Behavioral Health if PHQ-9 score >9:, Yes: Referral to [facility], Yes: Referral to Physician if PHQ-9 if score is 5-9: and Yes: Attend Stress Management Classes Patient Health Questionnaire PHQ-9 Screening 30-Day Re-eval Assessment: 1. Little interest or pleasure in doing things: Not at all 2. Feeling down, depressed, or hopeless: Not at all 3. Trouble falling or staying asleep, or sleeping too much: Nearly every day 4. Feeling tired or having little energy: Not at all 5. Poor appetite or overeating: Not at all 6. Feeling bad about yourself -- or that you are a failure or have let yourself or your family down: Not at all 7. Trouble concentrating on things, such as reading the newspaper or watching television: Not at all 8. Moving or speaking so slowly that other people could have noticed. Or the opposite - being so fidgety or restless that you have been moving around a lot more than usual: Not at all 9. Thoughts that you would be better off , or of hurting yourself in some way: Not at all How difficult have these problems made it for you to do your work, take care of things at home, or get along with other people?: Not difficult at all Total Score: 3 Self-Efficacy 6-Item Scale 30-Day Re-eval Assessment: We would like to know how confident you are in doing certain activities. Please select your confidence level for: Fatigue Select Number: 8 Physical Discomfort or Pain Select Number: 9 Emotional Distress Select Number: 10 Other Symptoms or Health Problems Select Number: 9 Different Tasks and Activities Select Number: 9 Medication Select Number: 9 Total Score:: 9 Nutrition Survey Nutrition Survey Instructions Scoring Instructions Exercise - 30-day Assessment Visit Date of Eval: 06/20/24 Session #:: 12 Physician Prescribed Exercise Modalities: Treadmill, Schwinn Airdyne AD-7 and SciFit Stepper Frequency: 3x/week for 12 weeks [36 sessions] Intensity: 60-80% of age predicted maximum heart rate reserve Duration: 30 - 45 minutes Current METSs:: 5.3 Target Heart Rate:: 89-111 Current RPE:: 11-12 Maximum Excercise HR:: 112 Resting Blood Pressure: 130/74 Maximum Exercise Blood Pressure: 138/64 EKG Type: NSR to ST with rare PAC/PVC's. One couplet noted. Outcomes & Goals Goals:: Verbalizes understanding of THR, RPE & goal METS by session 6, Documents in home exercise log/reports 30 min aerobic 5 day/wk by DC, Demonstrates accurate pulse taking by DC and Other additional outcome/goals: see below Intervention & Plan Exercise Program Goals: Instruct on personal THR & RPE, Instruct on MET level & personal MET goal, Show patient to take own pulse /validate performance until accurate, Instruct on home exercise and Other additional plan/int 30-day Reassessments 30 day Reassessments:: Progressing Reassessment Notes & Comments:: RPE explained and used in González's daily sessions. Physical Activity Home Exercise Physical Activity - Home Exercise: Safe Exercise, Warm-up, Self-monitoring, Cool-Down, Home Exercise > 30 min Daily and Sitting Time <3 hours/daily Outcomes & Goals Outcomes/Goals: Demonstrates correct Warm-up/exercise Cool-Down (S3) if = 2.5 METs, Verbalizes symptoms of exercise intolerance by Session 3 (S3), Demonstrate safe equipment use (S3) & follows exercise prescrition (6) and Other: See below Intervention & Plan Plan/Intervention: Instruct warm-up & cool-down if exercising at > 2 METs, Instruct on symptoms of exercise intolerance & actions to take, Instruct & monitor on saf, Assess intial functional capacity & safety risk and Other See below 30-day Reassessments 30 day Reassessments:: Progressing Reassessment Notes & Comments:: Proper warm up explained and encouraged. Pt is able to demonstrate properly. Exercise - 60-day Assessment Physician Prescribed Exercise Modalities: Treadmill, Schwinn Airdyne AD-7 and SciFit Stepper Exercise - 90-day Assessment Physician Prescribed Exercise Modalities: Treadmill, Schwinn Airdyne AD-7 and SciFit Stepper Exercise - Final/Discharge Physician Prescribed Exercise Modalities: Treadmill, Schwinn Airdyne AD-7 and SciFit Stepper Nutrition - 30-Day Assessment Program Goals Nutrition Program Goals Patient has diagnosis of Hyperlipidemia (ICD E78)?: Yes Visit Date of Eval: 06/20/24 Session #:: 12 Cholesterol/Lipids (Other Core Measures) Triglycerides (mg/dL): 49 Total Cholesterol (mg/dL): 207 LDL Cholesterol (mg/dL): 148 HDL Cholesterol (mg/dL): 49 Lipid Medication: Pt is on a antiplatelet. Pt is on Plavix 75 mg PO daily Determine presence & major risk factors that modify LDL goal: Cigarette smoking, Hypertension or hypertensive medication, Low HDL cholesterol <40 mg/dL*, Family history of premature CHD in Male < 55 years: female <65 yearsFa and Age men > 45 years; women >/= 55 years Outcomes/Goals: Pt IDs own risk factors & lifestyle modifications by Session 10, Verbalizes symptoms of angina & response by session 3., Pt independently manages and Other Additional Outcomes/Goals: Intervention/Plan: Advocate for lipid panel cholesterol medication if applicable, Instruct on personal lipid levels & lipid goals/NCEP guidelines, Instruct on cholesterol and Other additional plan/int 30-day Reassessments:: Progressing Reassessment Notes & Comments:: Pt is encouraged to take meds as prescribed 100% of the time. Will report labs to physician if no improvement seen. Diabetes (Other Core Measures) Diabetes Type: Not Applicable Weight Mgt (Other Care) Height: 6 ft 4 in Weight:: 174 lb 8 oz BMI: 21.2 Diagnosis Overweight/Obesity BMI> 30% ICD-10 E66: No Diagnosis High BMI/Morbid Obesity BMI> 35% ICD-10 Z68: No Outcomes/Goals: Pt sets, maintains & shows weight loss goal & trend during rehab and Other additional outcomes/goals Intervention/Plan: Instruct on ideal BMI & set weight loss goal w/patient, Assist pt to ID & incorporate diet changes for weight loss by S9, Refer to Structured Weight Loss program as appropriate, Encourage goal of using 250- 300dcal per session for weight loss and Other additional plan/interventions 30 day Reassessments:: Met Reassessment Notes & Comments:: Pt has met his weight goals. Will continue to weigh González every Monday. González will be going to nutrition class next month, Healthy Eating Habits Will attend diet classes:: Yes Outcomes/Goals:: Consume diet rich in vegs,fruits,whole grain/high fiber,fish,lean meat, Limit sat/trans fats,cholesterol & added salts & sugars and Other additional outcome/goals: Intervention/Plan:: Assess current eating habits and Other Additional plan/interventions 30-day Reassessments:: Progressing Reassessment Notes & Comments:: Pt's has met his weight goal. González will attend nutrition class next month. 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 Education Gave educational materials for:: Signs & symptoms of hypoglycemia, Signs & symptoms of hyperglycemia, Relate diabetes to coronary artery disease and Healthy eating Nutrition - 60-Day Assessment Weight Mgt (Other Care) Height: 6 ft 4 in Weight:: 174 lb 8 oz BMI: 21.2 Core - 30-Day Assessment Visit Date of Eval: 06/20/24 Session #:: 12 Medication Compliance Preventative Medication(s):: Aspirin, Clopidogrel/P2Y12 inhibit and Beta roula H/O mental health issues: depression, anxiety, or addiction?: No Doesn?t believe in the benefits of treatment?: No Believes medications are unnecessary or harmful?: No Has a concern about medication side effects?: No Expresses concern over the cost of medications?: No Outcomes/Goals: Verbalizes medications,desired effect & common side effects @ DC, Pt self-reports following medication regimen, Keeps card in wallet w/medications listed by DC and Other additional outcome/goals: Interventions/plans: Instruct on medication effects & side effects, Review medication list w/patient every two weeks, Instruct importance of taking meds as ordered & assist problem solving and Other additional 30-day Reassessments:: Progressing Reassessment Notes & Comments:: González is encouraged to take his meds 100% of the time as prescribed by his physician. Will discuss the effects of noncompliance with pt. Tobacco Use Tobacco Use: Non-smoker Hypertension Hypertension Diagnosis:: Hypertension ICD-10 I10 Resting Blood Pressure:: 130/74 [place] [employer] Hypertension Guidelines Outcomes/Goals: Able to verbalize/achieve optimal blood pressure <130/80, Incorporates diet changes & exercise for blood pressure control by DC and Other additional outcomes/goals Interventions/plan: Instruct on optimal blood pressure, hypertension & medications, Instruct on effects of sodium, alcohol, stress, exercise &hypertension and Other additional plan/interventions 30 day Reassessments:: Met Reassessment Notes & Comments:: González's pressures are currently within the AHA guidleines. If this changes a report will be sent to his physician. Tobacco Cessation Referral Smoking Cessation Referral:: No Individual Education/Counseling:: No Education Schedule Given:: Yes Psychosocial - 30-Day Assess VIsit Date of Eval: 06/20/24 Not Applicable: No Target Goals Target Goals Psychosocial Test Tool Used:: [employer] QOL Cardiac and PHQ-9 Questionnaire phq-9 Severity Referral to Behavioral Health PS - Interventions: Yes: Referral to Behavioral Health if PHQ-9 score >9:, Yes: Referral to [facility], Yes: Referral to Physician if PHQ-9 if score is 5-9: and Yes: Attend Stress Management Classes Outcomes/Goals: See list Psychosocial Outcomes/Goals:: ID's personal stressors & 2 strategies to manage stress by discharge and Other Additional outcome/goals: Intervention/Plan: See List Interventions/Plan:: Assess stressors,coping strategies & signs of derpression on admission, Instruct/assist pt to develop coping & personal stress Mgt strategies, Refer to Behavioral Health if appropriate, Refer to Physician if appropriate, Instruct patient to recognize signs & symptoms of depression, Instruct patient to recog and Other additional plan/intervention 30-day Reassessments: 30 day Reassessments:: Met Reassessment Notes & Comments:: González is currently free of any physcosocial disorders. Will reevaluate in 30 days. Psychosocial - 60-Day Assess Target Goals Target Goals Referral to Behavioral Health PS - Interventions: Yes: Referral to Behavioral Health if PHQ-9 score >9:, Yes: Referral to [facility], Yes: Referral to Physician if PHQ-9 if score is 5-9: and Yes: Attend Stress Management Classes Outcomes/Goals: See list Psychosocial Outcomes/Goals:: ID's personal stressors & 2 strategies to manage stress by discharge and Other Additional outcome/goals: Psychosocial - 90-Day Assess Target Goals Target Goals Referral to Behavioral Health PS - Interventions: Yes: Referral to Behavioral Health if PHQ-9 score >9:, Yes: Referral to [facility], Yes: Referral to Physician if PHQ-9 if score is 5-9: and Yes: Attend Stress Management Classes Psychosocial - Final Assessmen Target Goals Target Goals Referral to Behavioral Health PS - Interventions: Yes: Referral to Behavioral Health if PHQ-9 score >9:, Yes: Referral to [facility], Yes: Referral to Physician if PHQ-9 if score is 5-9: and Yes: Attend Stress Management Classes Nutrition - 90-Day Assessment Weight Mgt (Other Care) Height: 6 ft 4 in Weight:: 174 lb 8 oz BMI: 21.2 Nutrition - Final Assessment Weight Mgt (Other Care) Height: 6 ft 4 in Weight:: 174 lb 8 oz BMI: 21.2
[2024-06-20 08:41] VITALS: BP 130/74
[2024-06-20 09:07] VITALS: BMI 21.2
[2024-06-20 09:16] VITALS: BP 130/74
== END 2024-07-08 23:59 ==
LOC: CR 10:15
PROVIDERS: PCP Family Medicine; Referring Provider Internal Medicine Cardiovascular Disease; Visit Provider Internal Medicine Cardiovascular Disease
DX: Z95.1 Presence of aortocoronary bypass graft (principal); J44.9 Chronic obstructive pulmonary disease, unspecified; I11.0 Hypertensive heart disease with heart failure; I50.23 Acute on chronic systolic (congestive) heart failure; I21.4 Non-ST elevation (NSTEMI) myocardial infarction; I42.9 Cardiomyopathy, unspecified; I25.10 Atherosclerotic heart disease of native coronary artery without angina pectoris; E78.5 Hyperlipidemia, unspecified; R07.9 Chest pain, unspecified
CPT/HCPCS: 93798

== ENCOUNTER 2024-07-08 11:30 | Outpatient (RCR) | payer MEDICARE, SELFPAY ==
--- NOTE | 2024-05-08 10:46 | HP.PTEVAL_ITS ---
Patient's Visit Information Visit Information Visit Information: MARCELLO MANNING is a 73 year old M referred to Physical Therapy by Dr. Maria Del Rosario Sierra MD with a diagnosis of LEFT SHOULDER STRAIN. Date of Evaluation: 05/08/24 Physical Therapist: Abhijeet Stewart PT, Cert MDT, OCS Visit Plan Frequency: 2x /Week Duration: 4 Weeks Plan: CABG X3 04/12 STERNAL PRECAUTIONS PT INTERVENTIONS STRENGTHENING RTC/SCAPAULAR ,POSTURE EX'S AND ROM EXERCISES Subjective Subjective: This 73 y/o male presents to physical therapy with left shoulder pain. Patient had GA went to ER at [facility] and had CABG X3 at [facility] April 12 then d/c home April 15. Patient developed shoulder pain after surgery then progressively worse. Seen DR jason PT. Patient also plans to get cardiac therapy. No imaging for shoulder. Pain located global houlder and lateral deltoid. Patient pain described ache. Aggravating factors with certain movements raising arm OH ,reaching and lifting. Alleviating factors rest . Denies paresthesia/tingling. Pain affects sleeping .Patient has hand tremors. Patient pain causes deficits with ADLS and housework tasks. Goals to pain. SOCIAL: VOCATION: retired Pain Left Shoulder: Pain Intensity (Out of 10): 5 Pain Intensity Range: 10 Objective Objective: POSTURE: mild forward posture PALAPTION: unremarkable NEURO: denies paresthesia/tingling AROM: shoulder flexion 120 degrees ,130 degrees ,ER 90 degrees ,IR L4 MMT: infraspinatus 4/5 ,subscapularis ,( peak force) supraspinatus 5.6 ,deltoid 3.4 CERVICAL ROM: flexion ,rotation/lateral flexion ,extension min loss no pain Special Tests C/S Radiculapathy - Left Upper limb tension test: Negative C/S Radiculapathy - Right Upper limb tension test: Negative C/S Radiculapathy - Left Spurlings: Negative C/S Radiculapathy - Right Spurlings: Negative R Shoulder External Rotation Lag Test - RC Tear: Positive R Shoulder Supine Impingement Test - RC Tear: Positive R Shoulder Lift Off Test - Subscapular Tear: Negative R Shoulder Drop Sign - IS Test: Negative R Shoulder Empty Can - SS: Positive R Shoulder Belly Press - SupScap: Negative R Shoulder Neer - Impingement: Positive R Shoulder Roque Godwin - Impingement: Positive Balance/Special Test Scores Quick DASH Score: 38.6350 Goals Goal 1:: Patient to be I with HEP for shoulder Goal Time Frame: 4-6 Weeks Goal 2:: Patient to to demonstrate 60% improvement with less pain and improved function with function Goal Time Frame: 4-6 Weeks Goal 3:: Patient to improve AROM shoulder flexion/abduction 150 degrees to improve ADLS and activities housework Goal Time Frame: 4-6 Weeks Goal 4:: Patient to improve peak force supraspinatus /deltoid by 5-10# to improve function with ADLS Goal Time Frame: 4-6 Weeks Goal 5:: Patient to improve quick dash by 5 points to improve QOL Goal Time Frame: 4-6 Weeks Rehabilitation Potential Physical Therapy Diagnosis: This patient appears to have supraspinatus tear with pain ,decrease ROM ,weakness impairs ADLS and housework tasks thus benefit from skilled PT Rehabilitation Potential: Good Anticipated Interventions Patient/Client Instruction: Educate patient on: Condition and Plan of Care For the Purpose of:: To decrease pain, To improve muscle performance and motor function, To improve ability to perform ADL's, To improve ability of physical actions for home/community/work/leisure, To improve health of tissue, To decrease soft tissue restriction, To increase flexibility/ROM, To assume or resume ADL's, To reduce risk of recurrence, To improve health and function and To improve tolerance to ADL's TENS: Yes IF ES: Yes Cryotherapy (ice pack, ice massage): Yes Thermo therapy (hot pack): Yes Ultrasound (thermal/non thermal): Yes For the Purpose of:: To decrease pain and To increase ROM Text: Thank you for the opportunity to evaluate your patient. For Medicare and Medicare HMO plans, please review the plan of care and approve it. It will need to be FAXED BACK to us at [phone] for Medicare purposes. For Medicare only, by signing this I certify the plan of care. Please let me know if there are questions or concerns regarding this plan of care. Physician Signature: Date:
--- NOTE | 2024-07-08 11:54 | HP.PTDCSUM ---
Discharge Summary D/C summary: It has been my pleasure to treat MARCELLO MANNING referred by Dr. Maria Del Rosario Sierra MD, with the diagnosis of LEFT SHOULDER STRAIN for a total of 12 visit(s). Discharge Date: Please see the following information for a summary of their discharge status. Subjective Subjective: Doing well , Ready for d/c Pain Left Shoulder: Pain Intensity (Out of 10): 0 Overall Improvement % Improvement: 95 Objective Objective/Function: POSTURE: mild forward posture PALAPTION: unremarkable NEURO: denies paresthesia/tingling AROM: shoulder flexion 150 degrees ,150 degrees ,ER 90 degrees ,T 11 MMT: infraspinatus 4/5 ,subscapularis ,( peak force) supraspinatus 17.1,deltoid 16.9 CERVICAL ROM: flexion ,rotation/lateral flexion ,extension min loss no pain Goals Goal 1:: Patient to be I with HEP for shoulder Goal Progress: Goal Met Goal 2:: Patient to to demonstrate 60% improvement with less pain and improved function with function Goal Progress: Goal Met Goal 3:: Patient to improve AROM shoulder flexion/abduction 150 degrees to improve ADLS and activities housework Goal Progress: Goal Met Goal 4:: Patient to improve peak force supraspinatus /deltoid by 5-10# to improve function with ADLS Goal Progress: Goal Met Goal 5:: Patient to improve quick dash by 5 points to improve QOL Goal Progress: Goal Met Plan Plan: D/C D/C Information d/c sentence: If there are questions or concerns regarding this patient's physical therapy, please feel free to call me at [phone]. Thank you for the referral of this patient. Sincerely, Abhijeet Stewart, PT, Cert MDT, OCS Balance/Gait/Functional tests Balance/Special Test Scores Quick DASH Score: 9.0900 Improvement % Improvement: 95
== END 2024-07-08 12:13 | disposition home or self-care (01) ==
LOC: PT 11:30
PROVIDERS: PCP Family Medicine; Referring Provider Family Medicine; Visit Provider Family Medicine
DX: S46.012D Strain of muscle(s) and tendon(s) of the rotator cuff of left shoulder, subsequent encounter (principal)
CPT/HCPCS: 97110; 97162; 97530

== ENCOUNTER → 2024-07-15 | Outpatient (CLI) | payer MEDICARE, SELFPAY ==
[2024-06-20 09:07] VITALS: BMI 21.2
--- NOTE | 2024-07-15 08:43 | ECHOLC_ITS ---
Reason For Study: CONGESTIVE HEART FAILURE Procedure This was a limited 2D transthoracic echocardiogram. Myocardial strain analysis was performed in this exam to aid in the assessment of cardiac function. Contrast injection was performed. The study was technically difficult. Exam performed in department. Left Ventricle Normal LV size. Sigmoid septum. The left ventricular ejection fraction is 40 %. Mild to moderate segmental systolic dysfunction (see wall motion). Stage 1 diastolic dysfunction. Septal [place] : Akinetic. Mid-anteroseptal : Akinetic. Mid-Anterior : Hypokinetic. Anterior [place] : Severely Hypokinetic. The rest of the wall segments are normal. Right Ventricle Normal RV size. Normal systolic function. Atria Normal left atrium. Normal right atrium. Mitral Valve Normal mitral valve. Tricuspid Valve Normal tricuspid valve. Mild tricuspid valve insufficiency. Pulmonary artery systolic pressure is 26 mmHg. Aortic Valve Trisinus/trileaflet aortic valve. Trivial aortic valve insufficiency. Pulmonic Valve Normal pulmonic valve. Trivial pulmonic valve insufficiency. Great Vessels Normal aortic root. The pulmonary artery is normal size. Inferior vena cava collapse with respiration. Pericardium/Pleural No pericardial effusion. Medication 22 gauge I.V. with prn adaptor inserted into right arm. Diluted definity 3ml given slow IV push to enhance endocardial definition. MMode/2D Measurements & Calculations LVIDd: 4.5 cm IVSd: 1.4 cm LVOT diam: 2.2 cm LVIDs: 3.5 cm LVPWd: 1.1 cm RVDd: 4.0 cm FS: 21.6 % LVOT area: 3.9 cm2 LAV(MOD-bp): 55.6 ml LVAd ap4: 49.1 cm2 LVAd ap2: 44.6 cm2 LAV(MOD-bp) Indexed: 27.0 ml/m2 LVLd ap4: 9.8 cm LVLd ap2: 9.3 cm LAV(MOD-sp2): 55.1 ml EDV(MOD-sp4): 196.1 ml EDV(MOD-sp2): 175.2 ml LAV(MOD-sp4): 55.5 ml EDV(sp4-el): 209.1 ml EDV(sp2-el): 182.5 ml LVAs ap4: 37.0 cm2 LVAs ap2: 34.2 cm2 LVLs ap4: 9.1 cm LVLs ap2: 9.0 cm ESV(MOD-sp4): 122.0 ml ESV(MOD-sp2): 105.4 ml ESV(sp4-el): 126.9 ml ESV(sp2-el): 110.7 ml EF(MOD-sp4): 37.8 % EF(MOD-sp2): 39.8 % EF(sp4-el): 39.3 % SV(MOD-sp4): 74.0 ml SV(MOD-sp2): 69.8 ml SV(sp4-el): 82.1 ml Ao sinus diam: 3.[address] Junction: 3.5 cm LA A4 area: 18.8 cm2 LA dimension(2D): 4.5 cm RA A4 area: 15.2 cm2 TAPSE: 1.3 cm Time Measurements MV dec time: 0.29 sec Doppler Measurements & Calculations MV E max daquan: 45.5 cm/sec Lat Peak E' Daquan: 5.9 cm/sec Med Peak E' Daquan: 8.0 cm/sec MV A max daquan: 84.9 cm/sec E/E' lat: 7.8 E/E' med: 5.7 MV E/A: 0.54 MV dec slope: 157.5 cm/sec2 PA V2 max: 80.6 cm/sec TR max daquan: 239.4 cm/sec TR max P.9 mmHg ECHO/Echo Limited w/Contrast Interpretation Summary The left ventricular ejection fraction is 40 %. Normal LV size. Mild to moderate segmental systolic dysfunction (see wall motion). Compared with the previous echocardiogram the above findings are essentially un changed. Stage 1 diastolic dysfunction. The global longitudinal strain is severely abnormal. The global longitudinal st rain = -11% (abnormal). Contrast injection was performed. Ordering Physician: Rahel Castanon Referring Physician: Maria Del Rosario Sierra M.D. Performed By: Keri Herr RDCS
== END | disposition home or self-care (01) ==
LOC: CVS 08:43
PROVIDERS: PCP Family Medicine; Referring Provider Physician Assistant Medical; Visit Provider Physician Assistant Medical
DX: I25.5 Ischemic cardiomyopathy (principal)
CPT/HCPCS: 93308; Q9957; A4216; C8924

== ENCOUNTER 2024-08-07 10:15 | Outpatient (RCR) | payer MEDICARE, SELFPAY ==
[2024-06-20 09:07] VITALS: BMI 21.2
[2024-07-09 00:39] VITALS: BP 130/74
--- NOTE | 2024-07-19 10:12 | PCM.CR.ITP ---
Exercise - Initial Assessment Physician Prescribed Exercise Modalities: Treadmill, Schwinn Airdyne AD-7 and SciFit Stepper Nutrition - Initial Assessment Weight Mgt (Other Care) Height: 6 ft 4 in Weight:: 174 lb 8 oz BMI: 21.2 Psychosocial - Initial Assess Target Goals Target Goals Referral to Behavioral Health PS - Interventions: Yes: Attend Stress Management Classes Patient Health Questionnaire PHQ-9 Screening 60-Day Re-eval Assessment: 1. Little interest or pleasure in doing things: Not at all 2. Feeling down, depressed, or hopeless: Not at all 3. Trouble falling or staying asleep, or sleeping too much: Nearly every day 4. Feeling tired or having little energy: Not at all 5. Poor appetite or overeating: Not at all 6. Feeling bad about yourself -- or that you are a failure or have let yourself or your family down: Not at all 7. Trouble concentrating on things, such as reading the newspaper or watching television: Not at all 8. Moving or speaking so slowly that other people could have noticed. Or the opposite - being so fidgety or restless that you have been moving around a lot more than usual: Not at all 9. Thoughts that you would be better off , or of hurting yourself in some way: Not at all How difficult have these problems made it for you to do your work, take care of things at home, or get along with other people?: Not difficult at all Total Score: 3 Self-Efficacy 6-Item Scale 60-Day Re-eval Assessment: We would like to know how confident you are in doing certain activities. Please select your confidence level for: Fatigue Select Number: 8 Physical Discomfort or Pain Select Number: 9 Emotional Distress Select Number: 10 Other Symptoms or Health Problems Select Number: 9 Different Tasks and Activities Select Number: 9 Medication Select Number: 9 Total Score:: 9 Nutrition Survey Nutrition Survey Instructions Scoring Instructions Exercise - 30-day Assessment Physician Prescribed Exercise Modalities: Treadmill, Schwinn Airdyne AD-7 and SciFit Stepper Exercise - 60-day Assessment Visit Date of Eval: 07/19/24 Session #:: 24 Physician Prescribed Exercise Modalities: Treadmill, Schwinn Airdyne AD-7 and SciFit Stepper Frequency: 3x/week for 12 weeks [36 sessions] Duration: 30 - 45 minutes Current METSs:: 7.7 Target Heart Rate:: 89-111 Current RPE:: 11-12.5 Maximum Excercise HR:: 118 Resting Blood Pressure: 128/52 Maximum Exercise Blood Pressure: 132/80 EKG Type: NSR to ST with occas PAC/PVC Outcomes & Goals Goals:: Verbalizes understanding of THR, RPE & goal METS by session 6, Documents in home exercise log/reports 30 min aerobic 5 day/wk by DC, Demonstrates accurate pulse taking by DC and Other additional outcome/goals: see below Intervention & Plan Exercise Program Goals: Instruct on personal THR & RPE, Instruct on MET level & personal MET goal, Show patient to take own pulse /validate performance until accurate, Instruct on home exercise and Other additional plan/int 30-day Reassessments 30 day Reassessments:: Progressing Reassessment Notes & Comments:: Pt is able to increase his exercise intensity to 7.7 METS. Pt is also encouraged to walk on days off and keep a log of his progress. Physical Activity Home Exercise Physical Activity - Home Exercise: Safe Exercise, Warm-up, Self-monitoring, Cool-Down, Home Exercise > 30 min Daily and Sitting Time <3 hours/daily Outcomes & Goals Outcomes/Goals: Demonstrates correct Warm-up/exercise Cool-Down (S3) if = 2.5 METs, Verbalizes symptoms of exercise intolerance by Session 3 (S3), Demonstrate safe equipment use (S3) & follows exercise prescrition (6) and Other: See below Intervention & Plan Plan/Intervention: Instruct warm-up & cool-down if exercising at > 2 METs, Instruct on symptoms of exercise intolerance & actions to take, Instruct & monitor on saf, Assess intial functional capacity & safety risk and Other See below 30-day Reassessments 30 day Reassessments:: Progressing Reassessment Notes & Comments:: Proper cool down explained and encouraged. Pt is able to return demonstration properly and verbalizes why it is important. Exercise - 90-day Assessment Physician Prescribed Exercise Modalities: Treadmill, Schwinn Airdyne AD-7 and SciFit Stepper Exercise - Final/Discharge Physician Prescribed Exercise Modalities: Treadmill, Schwinn Airdyne AD-7 and SciFit Stepper Nutrition - 30-Day Assessment Weight Mgt (Other Care) Height: 6 ft 4 in Weight:: 174 lb 8 oz BMI: 21.2 Nutrition - 60-Day Assessment Program Goals Nutrition Program Goals Patient has diagnosis of Hyperlipidemia (ICD E78)?: Yes Visit Date of Eval: 07/19/24 Session #:: 24 Cholesterol/Lipids (Other Core Measures) Determine presence & major risk factors that modify LDL goal: Cigarette smoking, Hypertension or hypertensive medication, Low HDL cholesterol <40 mg/dL*, Family history of premature CHD in Male < 55 years: female <65 yearsFa and Age men > 45 years; women >/= 55 years Outcomes/Goals: Pt IDs own risk factors & lifestyle modifications by Session 10, Verbalizes symptoms of angina & response by session 3., Pt independently manages and Other Additional Outcomes/Goals: Intervention/Plan: Advocate for lipid panel cholesterol medication if applicable, Instruct on personal lipid levels & lipid goals/NCEP guidelines, Instruct on cholesterol and Other additional plan/int 30-day Reassessments:: Progressing Reassessment Notes & Comments:: Risk factors reviewed with pt. Pt demonstrates understanding. Pt encouraged to have labs drawn. Diabetes (Other Core Measures) Diabetes Type: Not Applicable Weight Mgt (Other Care) Height: 6 ft 4 in Weight:: 174 lb 8 oz BMI: 21.2 Diagnosis Overweight/Obesity BMI> 30% ICD-10 E66: No Diagnosis High BMI/Morbid Obesity BMI> 35% ICD-10 Z68: No Outcomes/Goals: Pt sets, maintains & shows weight loss goal & trend during rehab and Other additional outcomes/goals Intervention/Plan: Instruct on ideal BMI & set weight loss goal w/patient, Assist pt to ID & incorporate diet changes for weight loss by S9, Refer to Structured Weight Loss program as appropriate, Encourage goal of using 250-300dcal per session for weight loss and Other additional plan/interventions 30 day Reassessments:: Met Reassessment Notes & Comments:: Pt is at a healthy weight. Will continue to weigh pt every Monday. Pt encouraged to start a food log. Healthy Eating Habits Will attend diet classes:: Yes Outcomes/Goals:: Consume diet rich in vegs,fruits,whole grain/high fiber,fish,lean meat, Limit sat/trans fats,cholesterol & added salts & sugars and Other additional outcome/goals: Intervention/Plan:: Assess current eating habits and Other Additional plan/interventions 30-day Reassessments:: Met Reassessment Notes & Comments:: Pt is encouraged to meet with senior licensing manager 1 on 1 and start a food log. Pt has attended nutrition class. Education Gave educational materials for:: Signs & symptoms of hypoglycemia, Signs & symptoms of hyperglycemia, Relate diabetes to coronary artery disease and Healthy eating Core - 60-Day Assessment Visit Date of Eval: 07/19/24 Session #:: 24 Medication Compliance Preventative Medication(s):: Aspirin, Clopidogrel/P2Y12 inhibit and Beta roula H/O mental health issues: depression, anxiety, or addiction?: No Doesn?t believe in the benefits of treatment?: No Believes medications are unnecessary or harmful?: No Has a concern about medication side effects?: No Expresses concern over the cost of medications?: No Outcomes/Goals: Verbalizes medications,desired effect & common side effects @ DC, Pt self-reports following medication regimen, Keeps card in wallet w/medications listed by DC and Other additional outcome/goals: Interventions/plans: Instruct on medication effects & side effects, Review medication list w/patient every two weeks, Instruct importance of taking meds as ordered & assist problem solving and Other additional 30-day Reassessments:: Progressing Reassessment Notes & Comments:: Pt is taking his meds 100% of the time. Discussed effects of noncompliance. Also discussed side effects. Tobacco Use Tobacco Use: Non-smoker Hypertension Hypertension Diagnosis:: Hypertension ICD-10 I10 Resting Blood Pressure:: 128/52 [place] [employer] Hypertension Guidelines Peak Exercise Blood Pressure:: 132/80 Outcomes/Goals: Able to verbalize/achieve optimal blood pressure <130/80, Incorporates diet changes & exercise for blood pressure control by DC and Other additional outcomes/goals Interventions/plan: Instruct on optimal blood pressure, hypertension & medications, Instruct on effects of sodium, alcohol, stress, exercise &hypertension and Other additional plan/interventions 30 day Reassessments:: Met Reassessment Notes & Comments:: Pt's pressures are currently within AHA guidelines. Will report to physician if this changes. Tobacco Cessation Referral Smoking Cessation Referral:: No Individual Education/Counseling:: No Education Schedule Given:: Yes Psychosocial - 30-Day Assess Target Goals Target Goals Referral to Behavioral Health PS - Interventions: Yes: Attend Stress Management Classes Outcomes/Goals: See list Psychosocial Outcomes/Goals:: ID's personal stressors & 2 strategies to manage stress by discharge and Other Additional outcome/goals: Psychosocial - 60-Day Assess VIsit Date of Eval: 07/19/24 Session #:: 24 History of previous Mental disease:: No Target Goals Target Goals Psychosocial Test Tool Used:: [employer] QOL Cardiac and PHQ-9 Questionnaire phq-9 Severity Referral to Behavioral Health PS - Interventions: Yes: Attend Stress Management Classes Outcomes/Goals: See list Psychosocial Outcomes/Goals:: ID's personal stressors & 2 strategies to manage stress by discharge and Other Additional outcome/goals: Intervention/Plan: See List Interventions/Plan:: Assess stressors,coping strategies & signs of derpression on admission, Instruct/assist pt to develop coping & personal stress Mgt strategies, Refer to Behavioral Health if appropriate, Refer to Physician if appropriate, Instruct patient to recognize signs & symptoms of depression, Instruct patient to recog and Other additional plan/intervention 30-day Reassessments: 30 day Reassessments:: Met Reassessment Notes & Comments:: Pt denies any psychosocial issues at this time. Pt is to attend stress management class. Psychosocial - 90-Day Assess Target Goals Target Goals Referral to Behavioral Health PS - Interventions: Yes: Attend Stress Management Classes Psychosocial - Final Assessmen Target Goals Target Goals Referral to Behavioral Health PS - Interventions: Yes: Attend Stress Management Classes Nutrition - 90-Day Assessment Weight Mgt (Other Care) Height: 6 ft 4 in Weight:: 174 lb 8 oz BMI: 21.2 Nutrition - Final Assessment Weight Mgt (Other Care) Height: 6 ft 4 in Weight:: 174 lb 8 oz BMI: 21.2
[2024-07-19 10:24] VITALS: BP 128/52
[2024-07-19 10:34] VITALS: BMI 21.2
[2024-07-19 10:41] VITALS: BP 128/52
== END 2024-08-08 23:59 ==
LOC: CR 10:15
PROVIDERS: PCP Family Medicine; Referring Provider Internal Medicine Cardiovascular Disease; Visit Provider Internal Medicine Cardiovascular Disease
DX: I21.4 Non-ST elevation (NSTEMI) myocardial infarction (principal); I50.23 Acute on chronic systolic (congestive) heart failure; I11.0 Hypertensive heart disease with heart failure; I42.9 Cardiomyopathy, unspecified; E78.5 Hyperlipidemia, unspecified; R07.9 Chest pain, unspecified; Z95.1 Presence of aortocoronary bypass graft
CPT/HCPCS: 93798

== ENCOUNTER 2024-08-14 10:15 | Outpatient (RCR) | payer MEDICARE, SELFPAY ==
[2024-07-19 10:34] VITALS: BMI 21.2
[2024-08-09 00:21] VITALS: BP 128/52; BP 130/74
--- NOTE | 2024-08-19 15:23 | CR.ITP_ITS ---
Exercise - Initial Assessment Physician Prescribed Exercise Modalities: Treadmill, Rower and Schwinn Airdyne AD-7 Nutrition - Initial Assessment Program Goals Nutrition Program Goals Patient has diagnosis of Hyperlipidemia (ICD E78)?: Yes Weight Mgt (Other Care) Height: 6 ft 4 in Weight:: 175 lb BMI: 21.2 Core - Initial Assessment Hypertension Resting Blood Pressure:: 110/64 [place] [employer] Hypertension Guidelines Psychosocial - Initial Assess Target Goals Target Goals Referral to Behavioral Health PS - Interventions: Yes: Attend Stress Management Classes Patient Health Questionnaire PHQ-9 Screening Discharge Assessment: 1. Little interest or pleasure in doing things: Not at all 2. Feeling down, depressed, or hopeless: Not at all 3. Trouble falling or staying asleep, or sleeping too much: Not at all 4. Feeling tired or having little energy: Not at all 5. Poor appetite or overeating: Not at all 6. Feeling bad about yourself -- or that you are a failure or have let yourself or your family down: Not at all 7. Trouble concentrating on things, such as reading the newspaper or watching television: Not at all 8. Moving or speaking so slowly that other people could have noticed. Or the opposite - being so fidgety or restless that you have been moving around a lot more than usual: Not at all 9. Thoughts that you would be better off , or of hurting yourself in some way: Not at all How difficult have these problems made it for you to do your work, take care of things at home, or get along with other people?: Not difficult at all Total Score: 0 Self-Efficacy 6-Item Scale Discharge Assessment: We would like to know how confident you are in doing certain activities. Please select your confidence level for: Fatigue Select Number: 10 Physical Discomfort or Pain Select Number: 9 Emotional Distress Select Number: 10 Other Symptoms or Health Problems Select Number: 9 Different Tasks and Activities Select Number: 9 Medication Select Number: 10 Total Score:: 9 Nutrition Survey Nutrition Survey Instructions Scoring Instructions Exercise - 30-day Assessment Physician Prescribed Exercise Modalities: Treadmill, Rower and Schwinn dyne AD-7 Exercise - 60-day Assessment Physician Prescribed Exercise Modalities: Treadmill, Rower and Schwinn Airdyne AD-7 Exercise - 90-day Assessment Physician Prescribed Exercise Modalities: Treadmill, Rower and Schwinn Airdyne AD-7 Exercise - Final/Discharge Visit Date of Eval: 08/19/24 Session #:: 36 Physician Prescribed Exercise Modalities: Treadmill, Rower and Schwinn Shivanine AD-7 Frequency: 3x/week for 12 weeks [36 sessions] Intensity: 60-80% of age predicted maximum heart rate reserve Duration: 30 - 45 minutes Current METSs:: 11 Target Heart Rate:: 89-118 Current RPE:: 12-13 Maximum Heart Rate:: 132 Resting Blood Pressure: 110/64 Maximum Exercise Blood Pressure: 140/84 EKG Type: NSR to ST with rare to occas PAC's Outcomes & Goals Goals:: Verbalizes understanding of THR, RPE & goal METS by session 6, Documents in home exercise log/reports 30 min aerobic 5 day/wk by DC, Demonstrates accurate pulse taking by DC and Other additional outcome/goals: see below Intervention & Plan Exercise Program Goals: Instruct on personal THR & RPE, Instruct on MET level & personal MET goal, Show patient to take own pulse /validate performance until accurate, Instruct on home exercise and Other additional plan/int 30-day Reassessments 30 day Reassessments:: Met Reassessment Notes & Comments:: Pt has met his exercise goals. He has increased to 11 METS from 3 METS when he started. Pt is prepared to start his at home exercise routine. Physical Activity Home Exercise Physical Activity - Home Exercise: Safe Exercise, Warm-up, Self-monitoring, Cool-Down, Home Exercise > 30 min Daily and Sitting Time <3 hours/daily Outcomes & Goals Outcomes/Goals: Demonstrates correct Warm-up/exercise Cool-Down (S3) if = 2.5 METs, Verbalizes symptoms of exercise intolerance by Session 3 (S3), Demonstrate safe equipment use (S3) & follows exercise prescrition (6) and Other: See below Intervention & Plan Plan/Intervention: Instruct warm-up & cool-down if exercising at > 2 METs, Instruct on symptoms of exercise intolerance & actions to take, Instruct & monitor on saf, Assess intial functional capacity & safety risk and Other See below 30-day Reassessments 30 day Reassessments:: Met Reassessment Notes & Comments:: Pt understands warming up, cooling down, and how to exercise safely at home. Nutrition - 30-Day Assessment Weight Mgt (Other Care) Height: 6 ft 4 in Weight:: 175 lb BMI: 21.2 Nutrition - 60-Day Assessment Weight Mgt (Other Care) Height: 6 ft 4 in Weight:: 175 lb BMI: 21.2 Core - 30-Day Assessment Hypertension [place] [employer] Hypertension Guidelines Reassessment Notes & Comments:: Pt's bp's are within AHA's normal limits Core - Final Assessment Visit Date of Eval: 08/19/24 Session #:: 36 Medication Compliance Preventative Medication(s):: Aspirin, MALICK inhibitor and Statin/lipid H/O mental health issues: depression, anxiety, or addiction?: No Doesn?t believe in the benefits of treatment?: No Believes medications are unnecessary or harmful?: No Has a concern about medication side effects?: No Expresses concern over the cost of medications?: No Interventions/plans: Instruct on medication effects & side effects, Review medication list w/patient every two weeks, Instruct importance of taking meds as ordered & assist problem solving and Other additional 30-day Reassessments:: Met Reassessment Notes & Comments:: 08/09/24 clopidogrel 75 mg d/c and lisinopril 2.5 mg QD started Tobacco Use Tobacco Use: Non-smoker Hypertension Hypertension Diagnosis:: Hypertension ICD-10 I10 Resting Blood Pressure:: 110/64 [place] [employer] Hypertension Guidelines Peak Exercise Blood Pressure:: 140/84 Outcomes/Goals: Able to verbalize/achieve optimal blood pressure <130/80, Incorporates diet changes & exercise for blood pressure control by DC and Other additional outcomes/goals Interventions/plan: Instruct on optimal blood pressure, hypertension & medications, Instruct on effects of sodium, alcohol, stress, exercise &hypertension and Other additional plan/interventions 30 day Reassessments:: Met Reassessment Notes & Comments:: Pt's bp's are within AHA's normal limits Tobacco Cessation Referral Smoking Cessation Referral:: No Individual Education/Counseling:: No Education Schedule Given:: Yes Core - 90 Day Assessment Hypertension [place] [employer] Hypertension Guidelines Reassessment Notes & Comments:: Pt's bp's are within AHA's normal limits Core - 60-Day Assessment Hypertension Resting Blood Pressure:: 110/64 [place] [employer] Hypertension Guidelines Psychosocial - 30-Day Assess Target Goals Target Goals Referral to Behavioral Health PS - Interventions: Yes: Attend Stress Management Classes Psychosocial - 60-Day Assess Target Goals Target Goals Referral to Behavioral Health PS - Interventions: Yes: Attend Stress Management Classes Psychosocial - 90-Day Assess Target Goals Target Goals Referral to Behavioral Health PS - Interventions: Yes: Attend Stress Management Classes Psychosocial - Final Assessmen VIsit Date of Eval: 08/19/24 Session #:: 36 History of previous Mental disease:: No Target Goals Target Goals Psychosocial Test Tool Used:: [employer] QOL Cardiac and PHQ-9 Questionnaire phq-9 Severity Referral to Behavioral Health PS - Interventions: Yes: Attend Stress Management Classes Outcomes/Goals: See list Psychosocial Outcomes/Goals:: ID's personal stressors & 2 strategies to manage stress by discharge and Other Additional outcome/goals: Intervention/Plan: See List Interventions/Plan:: Assess stressors,coping strategies & signs of derpression on admission, Instruct/assist pt to develop coping & personal stress Mgt strategies, Refer to Behavioral Health if appropriate, Refer to Physician if appropriate, Instruct patient to recognize signs & symptoms of depression, Instruct patient to recog and Other additional plan/intervention 30-day Reassessments: 30 day Reassessments:: Met Reassessment Notes & Comments:: Pt denies psychosocial issues and is doing great! Nutrition - 90-Day Assessment Weight Mgt (Other Care) Height: 6 ft 4 in Weight:: 175 lb BMI: 21.2 Nutrition - Final Assessment Program Goals Patient has diagnosis of Hyperlipidemia (ICD E78)?: Yes Visit Date of Assessment:: 08/19/24 Session #:: 36 Cholesterol/Lipids (Other Core Measures) Determine presence & major risk factors that modify LDL goal: Hypertension or hypertensive medication, Low HDL cholesterol <40 mg/dL*, Family history of premature CHD in Male < 55 years: female <65 yearsFa and Age men > 45 years; women >/= 55 years Outcomes/Goals: Pt IDs own risk factors & lifestyle modifications by Session 10, Verbalizes symptoms of angina & response by session 3., Pt independently manages and Other Additional Outcomes/Goals: Intervention/Plan: Advocate for lipid panel cholesterol medication if applicable, Instruct on personal lipid levels & lipid goals/NCEP guidelines, Instruct on cholesterol and Other additional plan/int 30-day Reassessments:: Met Reassessment Notes & Comments:: Pt understands his risk factors. Pt has modified his lifestyle in order to minimize his risk factors. Diabetes (Other Core Measures) Diabetes Type: Not Applicable Weight Mgt (Other Care) Height: 6 ft 4 in Weight:: 175 lb BMI: 21.2 Diagnosis Overweight/Obesity BMI> 30% ICD-10 E66: No Diagnosis High BMI/Morbid Obesity BMI> 35% ICD-10 Z68: No Outcomes/Goals: Pt sets, maintains & shows weight loss goal & trend during rehab and Other additional outcomes/goals Intervention/Plan: Instruct on ideal BMI & set weight loss goal w/patient, Assist pt to ID & incorporate diet changes for weight loss by S9, Refer to Structured Weight Loss program as appropriate, Encourage goal of using 250- 300dcal per session for weight loss and Other additional plan/interventions 30 day Reassessments:: Met (Pt is at healthy weight) Healthy Eating Habits Will attend diet classes:: Yes Outcomes/Goals:: Consume diet rich in vegs,fruits,whole grain/high fiber,fish,lean meat, Limit sat/trans fats,cholesterol & added salts & sugars and Other additional outcome/goals: Intervention/Plan:: Assess current eating habits and Other Additional plan/interventions 30-day Reassessments:: Met Reassessment Notes & Comments:: Pt has attended nutrition class. Pt has modified his eating habits. Education Gave educational materials for:: Signs & symptoms of hypoglycemia, Signs & symptoms of hyperglycemia, Relate diabetes to coronary artery disease and Healthy eating
[2024-08-19 15:31] VITALS: BP 110/64
[2024-08-19 15:44] VITALS: BP 110/64; BMI 21.2
== END 2024-09-07 23:59 ==
LOC: CR 10:15
PROVIDERS: PCP Family Medicine; Referring Provider Internal Medicine Cardiovascular Disease; Visit Provider Internal Medicine Cardiovascular Disease
DX: Z95.1 Presence of aortocoronary bypass graft (principal); J44.9 Chronic obstructive pulmonary disease, unspecified; I11.0 Hypertensive heart disease with heart failure; I50.23 Acute on chronic systolic (congestive) heart failure; I21.4 Non-ST elevation (NSTEMI) myocardial infarction; I42.9 Cardiomyopathy, unspecified; I25.10 Atherosclerotic heart disease of native coronary artery without angina pectoris; E78.5 Hyperlipidemia, unspecified; R07.9 Chest pain, unspecified
CPT/HCPCS: 93798

== ENCOUNTER → 2025-01-30 | Outpatient (CLI) | payer MEDICARE, SELFPAY ==
[2025-01-30 10:52] LABS: Hemoglobin A1c 5.4 % (<=5.6)
[2025-01-30 10:56] LABS: ALB/GLOB Ratio 1.3 RATIO (0.9-2.4); AST(SGOT) 38 U/L (<=37); Alanine Aminotransfer ALT/SGPT 60 U/L (<=46); Albumin, Serum 3.9 g/dL (3.4-4.8); Alkaline Phosphatase 93 U/L (40-129); Anion Gap 9 (5-15); BUN 14 mg/dL (4-19); BUN/Creat Ratio 17.8 RATIO (10-20); CRP < 3.00 mg/L (0.0-3.0); Calcium,Total 8.6 mg/dL (7.6-11.0); Carbon Dioxide 24.7 mmol/L (21.0-32.0); Chloride 104 mmol/L (98-108); Cholesterol 235 mg/dL (<=200); EST Glomerular Filtration Rate 94 (>60); Globulin 2.9 g/dL (2.2-4.2); Glucose 75 mg/dL (70-99); High Density Lipoprotein 47 mg/dL; Low Density Lipoprotein Calc. 165 mg/dL; Potassium 4.2 mmol/L (3.3-5.1); Protein, Total 6.8 g/dL (5.9-8.4); Sodium Level 138 mmol/L (133-145); Total Bilirubin 0.63 mg/dL (0.00-1.30); Triglycerides 116 mg/dL; Very Low Density Lipoprotein 23 mg/dL (5-40); cholesterol:hdl ratio screen 5.04
== END | disposition home or self-care (01) ==
LOC: LAB 09:30
PROVIDERS: PCP Family Medicine; Referring Provider Physician Assistant Medical; Visit Provider Physician Assistant Medical
DX: E78.5 Hyperlipidemia, unspecified (principal); I42.9 Cardiomyopathy, unspecified; Z95.1 Presence of aortocoronary bypass graft; R73.9 Hyperglycemia, unspecified
CPT/HCPCS: 36415; 80053; 80061; 83036; 86140

== ENCOUNTER → 2025-02-24 | Outpatient (CLI) | payer MEDICARE, SELFPAY ==
--- NOTE | 2025-02-24 07:36 | ECHOD_ITS ---
Reason For Study : CARDIOMYOPATHY Procedure This was a 2D Doppler, Color Flow transthoracic echocardiogram. Myocardial strain analysis was performed in this exam to aid in the assessment of cardiac function. Exam performed in department. Left Ventricle Normal LV size. The left ventricular ejection fraction is 45 %. Stage 1 diastolic dysfunction. There are regional wall motion abnormalities as specified. Septal [place] : Akinetic. Anterior [place] : Hypokinetic. Mid-anteroseptal : Mildly hypokinetic. Right Ventricle Normal RV size. Normal systolic function. Atria Normal left atrium. Normal right atrium. Mitral Valve Normal mitral valve. Tricuspid Valve Normal tricuspid valve. Mild tricuspid valve insufficiency. Pulmonary artery systolic pressure is 30 mmHg. Aortic Valve Trisinus/trileaflet aortic valve. Pulmonic Valve Normal pulmonic valve. Great Vessels Mildly dilated aortic root. The pulmonary artery is normal size. Inferior vena cava collapse with respiration. Pericardium/Pleural No pericardial effusion. MMode/2D Measurements & Calculations LVIDd: 5.5 cm IVSd: 1.2 cm LVOT diam: 2.3 cm LVIDs: 4.1 cm LVPWd: 0.85 cm LVOT area: 4.2 cm2 RVDd: 4.3 cm FS: 25.8 % asc Aorta Diam: 3.6 cm LAV(MOD-bp): 62.4 ml LVAd ap4: 36.8 cm2 LAV(MOD-bp) Indexed: 29.9 ml/m2 LVLd ap4: 8.7 cm LAV(MOD-sp2): 49.8 ml EDV(MOD-sp4): 124.5 ml LAV(MOD-sp4): 72.3 ml EDV(sp4-el): 131.7 ml LVAs ap4: 23.8 cm2 LVLs ap4: 7.5 cm ESV(MOD-sp4): 59.7 ml ESV(sp4-el): 64.2 ml EF(MOD-sp4): 52.1 % EF(sp4-el): 51.3 % LVAd ap2: 34.6 cm2 SV(MOD-sp4): 64.8 ml SV(MOD-sp2): 46.0 ml LVLd ap2: 9.0 cm SI(MOD-sp4): 31.1 ml/m2 SI(MOD-sp2): 22.1 ml/m2 EDV(MOD-sp2): 107.6 ml EDV(sp2-el): 112.3 ml LVAs ap2: 25.4 cm2 LVLs ap2: 8.7 cm ESV(MOD-sp2): 61.7 ml ESV(sp2-el): 63.3 ml EF(MOD-sp2): 42.7 % SV(sp4-el): 67.5 ml Ao sinus diam: 4.[address] Junction: 3.4 cm LA dimension(2D): 4.0 cm LA A4 area: 21.6 cm2 RA A4 area: 14.7 cm2 TAPSE: 1.3 cm Time Measurements MV dec time: 0.24 sec Doppler Measurements & Calculations MV E max daquan: 37.1 cm/sec Lat Peak E' Daquan: 9.2 cm/sec Med Peak E' Daquan: 7.8 cm/sec MV A max daquan: 72.5 cm/sec E/E' lat: 4.0 E/E' med: 4.7 MV E/A: 0.51 MV dec slope: 152.9 cm/sec2 Ao V2 max: 119.2 cm/sec LV V1 max: 100.2 cm/sec Ao max P.7 mmHg LV V1 max P.0 mmHg Ao V2 mean: 83.1 cm/sec LV V1 mean P.3 mmHg Ao mean P.2 mmHg LV V1 mean: 71.6 cm/sec Ao V2 VTI: 26.6 cm LV V1 VTI: 22.7 cm AV (velocity ratio): 0.85 JAREN(I,D): 3.6 cm2 JAREN(V,D): 3.5 cm2 SV(LVOT): 95.1 ml PA V2 max: 94.0 cm/sec TR max daquan: 251.5 cm/sec TR max P.3 mmHg ECHO/Echo Complete Interpretation Summary Normal LV size. The left ventricular ejection fraction is 45 %. There are regional wall motion abnormalities as specified. Stage 1 diastolic dysfunction. Mildly dilated aortic root. The global longitudinal strain is moderately abnormal. The global longitudinal strain is moderately abnormal. Ordering Physician: Rahel Castanon Referring Physician: Maria Del Rosario Sierra M.D. Performed By: Keri Herr RDCS
== END | disposition home or self-care (01) ==
LOC: CVS 07:36
PROVIDERS: PCP Family Medicine; Referring Provider Physician Assistant Medical; Visit Provider Physician Assistant Medical
DX: I51.9 Heart disease, unspecified (principal)
CPT/HCPCS: 93306

== ENCOUNTER → 2025-05-13 | Outpatient (CLI) | payer MEDICARE, SELFPAY ==
[2025-05-13 11:50] LABS: AST(SGOT) 33 U/L (<=37); Alanine Aminotransfer ALT/SGPT 53 U/L (<=46); Albumin, Serum 3.9 g/dL (3.4-4.8); Alkaline Phosphatase 99 U/L (40-129); Anion Gap 10 (5-15); BUN 17 mg/dL (4-19); BUN/Creat Ratio 21.3 RATIO (10-20); Calcium,Total 9.0 mg/dL (7.6-11.0); Carbon Dioxide 23.0 mmol/L (21.0-32.0); Chloride 104 mmol/L (98-108); Cholesterol 230 mg/dL (<=200); Globulin 2.9 g/dL (2.2-4.2); Glucose 87 mg/dL (70-99); Low Density Lipoprotein Calc. 160 mg/dL; PSA,Total - Annual Screen 1.65 ng/mL (0.02-4.00); Potassium 4.2 mmol/L (3.3-5.1); Triglycerides 58 mg/dL; Very Low Density Lipoprotein 12 mg/dL (5-40); cholesterol:hdl ratio screen 3.96
== END | disposition home or self-care (01) ==
LOC: MFPLAB 08:12
DX: Z12.5 Encounter for screening for malignant neoplasm of prostate (principal); Z13.220 Encounter for screening for lipoid disorders
CPT/HCPCS: 36415; 80053; 80061; 84153; G0103